=== PATIENT | female | born 1945 | race Caucasian/White ===

== ENCOUNTER → 2018-09-24 14:19 | Outpatient (CLI) | payer MEDICARE, BC, SELFPAY ==
[2018-09-27 19:20] LABS: PTT-LA Screen 40 seconds (< OR = 40); dDRVVT Screen 48 seconds (< OR = 45)
[2018-09-28 15:35] LABS: ANA Screen NEGATIVE (Negative); DNA Antibody Crithidia IFA POSITIVE (Negative); Rheumatoid Factor <14 IU/mL; Sjogren Antiboday SS-A <1.0 NEG AI (<1.0 NEGATIVE); Sjogren Antiboday SS-B <1.0 NEG AI (<1.0 NEGATIVE); Sm Antibody <1.0 NEG AI (<1.0 NEGATIVE); Sm/RNP Antibody <1.0 NEG AI (<1.0 NEGATIVE)
== END ==
PROVIDERS: PCP Internal Medicine; Visit Provider Internal Medicine
DX: I26.99 Other pulmonary embolism without acute cor pulmonale (principal)
CPT/HCPCS: 36415; 81240; 81241; 85597; 85613; 85730; 86038; 86430

== ENCOUNTER 2018-10-08 13:43 | Day surgery (SDC) | payer MEDICARE, BC, SELFPAY ==
[2018-10-08] VITALS (7 sets, daily range): BP systolic 121–146; BP diastolic 70–78; PULSE 68–73; RESP 12–20; TEMP 36–36.9; O2SAT 96–98; BMI 33.0
--- NOTE | 2018-10-08 | PATH_ITS ---
[facility] Accession Number: [id number] . 01 Material submitted: . PART A: ASCENDING COLON POLYP PART B: TRANSVERSE COLON POLYP X3 PART C: SIGMOID POLYP PART D: RECTAL POLYP X2 . 02 Diagnosis: A. Ascending Colon, Polyp, Biopsy: Tubular adenoma. . B. Transverse Colon, Polyps x3, Biopsies: Tubular adenoma in two of six fragments. Hyperplastic polyp in one fragment. . C. Sigmoid Colon, Polyp, Biopsy: Hyperplastic polyp. . D. Rectum, Polyps x2, Biopsies: Multiple fragments of tubulovillous adenoma. No evidence of malignancy or high-grade dysplasia. [facility]/10/10/2018 . 02 Electronically signed: . Merly Armendariz MD, Pathologist NPI- [id number] . 01 Gross description: . Part A: ASCENDING COLON POLYP: Received in formalin are 2 fragment(s) of steel, soft tissue measuring 0.4 x 0.3 x 0.2 cm to 0.3 x 0.2 x 0.2 cm submitted entirely in 1 cassette(s) Part B: TRANSVERSE COLON POLYP X3: Received in formalin are multiple fragment(s) of steel, soft tissue measuring 0.9 x 0.6 x 0.2 cm in aggregate submitted entirely in 1 cassette(s) Part C: SIGMOID POLYP: Received in formalin is 1 fragment(s) of steel, soft tissue measuring 0.5 x 0.5 x 0.4 cm submitted entirely in 1 cassette(s) Part D: RECTAL POLYP X2: Received in formalin are multiple fragment(s) of steel, soft tissue measuring 1.5 x 1.0 x 0.4 cm in aggregate submitted entirely in 1 cassette(s) /CKI /CKI . 02 Pathologist provided ICD-10: D12.2, D12.3, D12.8 . 02 CPT . 244266, 102277, 425885, 321013 Performed at: 01 [facility] [address] [address] [id number] MD Adam Morgan MD Phone: [phone] Performed at: [address] [facility] [id number] [place], [place] [id number] MD Merly Armendariz MD Phone: [phone]
[2018-10-08] MEDS: SODIUM CHLORIDE 0.9% 1,000 ML 200 ML IV (15:20)
--- NOTE | 2018-10-08 15:25 | SUR.PREOP ---
per dr. brown no blood sugar or inr needed
--- NOTE | 2018-10-08 15:28 | PM.HP.1 ---
History of Present Illness Chief complaint: [id number] Patient History Social History household members: friend(s) Family & Social History Social History: household members friend(s) Meds Home Medications Medication Instructions Recorded Confirmed Type atorvastatin [Lipitor] 20 mg PO HS #0 06/06/17 10/08/18 History benazepril 5 mg PO DAILY 10/08/18 10/08/18 History gabapentin 600 mg PO BEDTIME 10/08/18 10/08/18 History pregabalin [Lyrica] 50 mg PO TID 10/08/18 10/08/18 History trazodone 50 mg PO BEDTIME 10/08/18 10/08/18 History warfarin 5 mg PO DAILY 10/08/18 10/08/18 History Review of Systems Review of Systems All systems reviewed & are unremarkable except as noted in HPI and below Exam Vital Signs (past 8 hours): - 10/08/18 15:02 Temperature 98.5 F Pulse Rate 73 Respiratory Rate 16 Blood Pressure 121/76 Pulse Oximetry 96 Narrative Exam Narrative: Awake alert oriented x3, pupils equal round reactive to light, heart regular rate rhythm, lungs clear to auscultation, abdomen soft nontender nondistended, no lower extremity edema Assessment & Plan Assessment & Plan narrative: Colon cancer screening, colonoscopy
--- NOTE | 2018-10-08 15:31 | SUR.PREOP ---
dr. montague decided to do blood sugar , it was 70, endo nurses to report findings to
[2018-10-08] MEDS: MIDAZOLAM 5 MG/5 ML VIAL IV (15:59)
[2018-10-08] MEDS: fentaNYL 250 MCG/5 ML INJ IV (16:00)
--- NOTE | 2018-10-08 16:23 | P.OP.ENDO_ITS ---
Operative Date/Time/Diagnoses Date of procedure: 10/08/18 Procedure & Clinicians Study performed: Colonoscopy with biopsy, snare polypectomy, and hemoclip placement Moderate conscious sedation was administered by the endoscopy nurse and supervised by the endoscopist. The following parameters were monitored: Oxygen saturation, heart rate, blood pressure, and response to care. Sedation: 5 mg midazolam, 100 mcg fentanyl Indications: Colon cancer screening. Family history of colon cancer in 2 first- degree relatives Procedure Notes Procedure in detail: Prior to the procedure, history and physical was performed, and patient medications and allergies were reviewed. Preprocedure nursing history and assessment was reviewed. Patient identification and proposed procedure were verified by the physician and nurse in the procedure room. The physical status of the patient was reassessed after the procedure. After informed consent was obtained including risks, benefits, and alternatives, the scope was passed under direct vision. Throughout the procedure, the patient's blood pressure, pulse, and oxygen saturations were monitored continuously. The colonoscope was introduced through the anus and advanced to the cecum as identified by the appendiceal orifice and ileocecal valve. The patient tolerated the procedure well. Bowel prep was deemed adequate to detect polyps greater than 5 mm. Perianal examination was notable for prolapsed internal hemorrhoids. LESA was unremarkable aside from weak sphincter tone. Retroflexion in the rectum revealed large grade 3 internal hemorrhoids. Many medium mouth sigmoid colon diverticula noted. A 12 mm semi pedunculated polyp in the mid to distal rectum about 6 cm from the dentate line was removed with a hot snare. Two hemoclips applied to the polypectomy defect to prevent post polypectomy bleeding. Six sessile polyps ranging in size from 3 to 4 mm were removed from the rectum, sigmoid colon, transverse colon, and ascending colon with a Jumbo biopsy forceps and retrieved Small telangiectasias scattered throughout the entire colon Impression: 12 mm rectal polyp removed. Hemoclips applied to mucosal defect to prevent bleeding Six 3-4 mm polyps removed from the rectum, sigmoid colon, transverse colon, and ascending colon Sigmoid colon diverticulosis Prolapsed internal hemorrhoids Colonic telangiectasias Sedation minutes: 36 Complications: other (EBL minimal. No complications) Plan for aftercare: Follow-up pathology results Repeat colonoscopy at a date to be determined based on pathology results Resume Coumadin tomorrow as per prescribing providers recommendations with regards to timing and dosage Resume other home medications High fiber diet Discharge home with escort
--- NOTE | 2018-10-08 16:40 | SUR.PHASEI ---
HOB elevated, drinking water, denies pain
--- NOTE | 2018-10-08 16:45 | SUR.PHASEI ---
164 Report given - to OPD by Raissa Blanco. Glasses returned to patient, taking sips of water. Oriented/drowsy.
== END 2018-10-08 16:57 | disposition home or self-care (01) ==
PROVIDERS: Internal Medicine; PCP Internal Medicine; Visit Provider Internal Medicine Gastroenterology
PROC: 0DJD8ZZ Inspection of Lower Intestinal Tract, Via Natural or Artificial Opening Endoscopic (ICD-10-PCS; CPT 45378; principal; 2018-10-08 15:30)
DX: Z12.11 Encounter for screening for malignant neoplasm of colon (principal); Z80.0 Family history of malignant neoplasm of digestive organs; K57.30 Diverticulosis of large intestine without perforation or abscess without bleeding; D64.2 Secondary sideroblastic anemia due to drugs and toxins; I78.1 Nevus, non-neoplastic; E11.9 Type 2 diabetes mellitus without complications; Z86.711 Personal history of pulmonary embolism; I10 Essential (primary) hypertension; E78.00 Pure hypercholesterolemia, unspecified; D12.2 Benign neoplasm of ascending colon; D12.3 Benign neoplasm of transverse colon; D12.8 Benign neoplasm of rectum; D12.5 Benign neoplasm of sigmoid colon
CPT/HCPCS: 45385; 45380; 45382; 88305; J2250; J3010

== ENCOUNTER → 2018-10-27 12:50 | Outpatient (CLI) | payer MEDICARE, BC, SELFPAY ==
--- NOTE | 2018-10-27 | DI.MG.S_ITS ---
BILATERAL DIGITAL SCREENING MAMMOGRAM 3D/2D WITH CAD POST LUMPECTOMY: 10/27/2018 CLINICAL: Routine screening. Personal history of left breast cancer. Family history of breast cancer. Comparison is made to exams dated: 10/24/2017 mammogram, 10/19/2016 mammogram, 10/18/2015 mammogram, 11/14/2017 mammogram, 10/07/2014 mammogram, and 10/18/2014 mammogram - [facility]. The tissue of both breasts is extremely dense, which lowers the sensitivity of mammography. Current study was also evaluated with a Computer Aided Detection (CAD) system. There are grouped punctate calcifications in the right breast upper outer aspect posterior depth with associated architectural distortion. Findings are best noted on tomographic CC slice 33 and MLO slice 44. There is postsurgical scarring of the left breast with associated coarse and may-like calcifications, most consistent with dystrophic and secretory calcifications, that are stable to prior exams. IMPRESSION: INCOMPLETE: NEEDS ADDITIONAL IMAGING EVALUATION The grouped punctate calcifications with associated architectural distortion in the right breast are indeterminate. Magnification views as well as additional views with possible ultrasound are recommended. This exam was interpreted at Station ID: [id number]. NOTE: For mammograms, a report in lay terms will be sent to the patient. Approximately 15% of breast malignancies will not be visualized mammographically. In the management of a palpable breast mass, a negative mammogram must not discourage biopsy of a clinically suspicious lesion. Electronically Signed By: Shady Marroquin M.D. ecl/:10/27/2018 19:49:23 copy to: OMAR MCFARLAND letter sent: Additional Imaging Needed ACR BI-RADS Category 0: Incomplete 3340F
== END ==
PROVIDERS: PCP Internal Medicine; Visit Provider Internal Medicine
DX: Z12.31 Encounter for screening mammogram for malignant neoplasm of breast (principal); Z85.3 Personal history of malignant neoplasm of breast; Z80.3 Family history of malignant neoplasm of breast
CPT/HCPCS: 77063; 77067

== ENCOUNTER → 2018-11-05 08:38 | Outpatient (CLI) | payer MEDICARE, BC, SELFPAY ==
--- NOTE | 2018-11-05 | DI.MG.S_ITS ---
UNILATERAL RIGHT DIGITAL DIAGNOSTIC MAMMOGRAM 3D/2D WITH ADDITIONAL VIEWS POST LUMPECTOMY: 11/05/2018 CLINICAL: Additional evaluation requested from prior study. Comparison is made to exams dated: 10/27/2018 mammogram, 11/14/2017 mammogram, and 10/24/2017 mammogram - [facility]. The tissue of right breast is extremely dense, which lowers the sensitivity of mammography. Previously identified 0.5 cm extent of grouped punctate calcifications in the right breast upper outer aspect posterior depth with associated architectural distortion seen on comparison screening mammograms of 10/27/2018 persists with additional views. IMPRESSION: INCOMPLETE: NEEDS ADDITIONAL IMAGING EVALUATION Previously identified 0.5 cm extent of grouped punctate calcifications in the right breast upper outer aspect posterior depth with associated architectural distortion seen on comparison screening mammograms of 10/27/2018 persists with additional views. A targeted ultrasound is recommended for further evaluation, and will be performed immediately following this exam. This exam was interpreted at Station ID: [id number]. NOTE: For mammograms, a report in lay terms will be sent to the patient. Approximately 15% of breast malignancies will not be visualized mammographically. In the management of a palpable breast mass, a negative mammogram must not discourage biopsy of a clinically suspicious lesion. Electronically Signed By: Shady Marroquin M.D. ecl/:11/05/2018 09:33:08 copy to: OMAR MCFARLAND letter sent: Additional Imaging Needed ACR BI-RADS Category 0: Incomplete 3340F
--- NOTE | 2018-11-05 | DI.US.S_ITS ---
LIMITED ULTRASOUND OF RIGHT BREAST: 11/05/2018 CLINICAL: Patient returns today to evaluate an area of architectural distortion in the right breast. Comparison is made to exams dated: 11/05/2018 mammogram, 10/27/2018 mammogram, 11/14/2017 mammogram, 10/24/2017 mammogram, 10/19/2016 mammogram, and 10/18/2015 mammogram - [facility]. Real-time and Doppler ultrasound of the right breast 11-12 o'clock, and retroareolar regions were performed. Daniels scale images of the real-time examination were reviewed. No underlying breast mass or abnormality is identified. There is no ultrasound correlate for the previously noted 0.5 cm extent of grouped punctate calcifications in the right breast upper outer aspect posterior depth with associated architectural distortion seen on comparison screening mammograms of 10/27/2018 which also persisted with additional views performed today 11/05/2018. IMPRESSION: SUSPICIOUS OF MALIGNANCY No ultrasound correlate for the previously noted 0.5 cm extent of grouped punctate calcifications in the right breast upper outer aspect posterior depth with associated architectural distortion seen on comparison screening and diagnostic mammograms. A stereotactic biopsy is recommended. These results and recommendations were discussed with the patient at the time of the exam by Dr. Chandler Sierra of [facility] in person. This exam was interpreted at Station ID: [id number]. Electronically Signed By: Shady Marroquin M.D. ecl/:11/05/2018 09:57:40 copy to: OMAR MCFARLAND letter sent: Biopsy Required Ultrasound BI-RADS: 4c Suspicious abnormality - moderate concern but not classic for malignancy
== END ==
PROVIDERS: PCP Internal Medicine; Visit Provider Internal Medicine
DX: R92.8 Other abnormal and inconclusive findings on diagnostic imaging of breast (principal)
CPT/HCPCS: 76642; 77065; G0279

== ENCOUNTER → 2018-12-30 14:47 | Outpatient (CLI) | payer MEDICARE, BC, SELFPAY ==
[2018-12-30 15:59] LABS: Alanine Aminotransferase 27 IU/L (9-52); Albumin 4.1 g/dL (3.5-5.0); Albumin Globulin Ratio 1.6 (1.0-2.8); Alkaline Phosphatase 85 U/L (38-126); Aspartate Aminotransferase 23 IU/L (14-36); BUN Creatinine Ratio 26.3 (6-22); Bilirubin Total 0.7 mg/dL (0.2-1.3); Blood Urea Nitrogen 21 mg/dL (7-17); Calcium 9.5 mg/dL (8.4-10.2); Carbon Dioxide 33 mmol/L (22-32); Chloride 102 mmol/L (98-107); Estimated Glomerular Filt Rate > 60.0 mL/min (>60); Globulin 2.5 g/dL (1.7-4.1); Glucose 116 mg/dL (80-110); HEMOLYSIS 18 (0-50); Potassium 4.7 mmol/L (3.4-5.1); Sodium 141 mmol/L (137-145); Total Protein 6.6 g/dL (6.3-8.2)
[2018-12-30 16:04] LABS: Add Manual Diff / Slide Review NO; Basophils Absolute Auto 0 /uL (0-100); Basophils Percent Auto 0.6 % (0-2); Eosinophils Absolute Auto 200 /uL (0-450); Eosinophils Percent Auto 4.1 % (2-4); Hematocrit 46.6 % (36-46); Hemoglobin 15.9 g/dL (12.0-16.0); Lymphocytes Absolute Auto 1000 /uL (1100-4500); Lymphocytes Percent Auto 18.6 % (25-40); Mean Corpuscular HGB Conc 34.1 % (30-36); Mean Corpuscular Hemoglobin 29.1 PG (26-34); Mean Corpuscular Volume 85.3 fL (80-100); Monocytes Absolute Auto 500 /uL (0-900); Monocytes Percent Auto 8.4 % (3-14); Neutrophils Absolute Auto 3700 /uL (1500-7000); Neutrophils Percent Auto 68.3 % (50-75); Platelet Count 163 X10^3/uL (150-400); Red Blood Cell Count 5.46 X10^6/uL (4.0-5.2); Red Cell Distribution Width 13.5 % (11.6-14.8); White Blood Cell Count 5.5 X10^3/uL (4.5-11.0)
== END ==
PROVIDERS: PCP Internal Medicine; Visit Provider Internal Medicine Hematology & Oncology
DX: D05.11 Intraductal carcinoma in situ of right breast (principal)
CPT/HCPCS: 36415; 80053; 85025

== ENCOUNTER → 2019-01-08 08:58 | Outpatient (CLI) | payer MEDICARE, BC, SELFPAY ==
--- NOTE | 2019-01-08 08:59 | DI.MRI.S_ITS ---
BREAST MRI OF BOTH BREASTS: 01/08/2019 CLINICAL: Breast cancer. Comparison is made to exams dated: 11/05/2018 mammogram, 10/27/2018 mammogram, 11/14/2017 mammogram, 10/24/2017 mammogram, and 10/19/2016 mammogram - [facility]. TECHNIQUE: The patient was placed prone in a dedicated breast imaging coil. Precontrast axial STIR and 3D FLASH without fat saturation sequences were obtained. Both before and after bolus injection of contrast, sequential 1-minute axial 3D FLASH with fat saturation sequences for 3 time points, with subtraction images and maximum intensity projections (MIP's) generated. Delayed sagittal FLASH images with fat saturation were also obtained. Computer-aided detection, including computer algorithm analysis of MRI image data for lesion detection and characterization, pharmacokinetic analysis, with further physician review for interpretation, was performed. FINDINGS: Image quality: Excellent. Right breast: There is mild background parenchymal enhancement. 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 No suspicious mass, or non-mass enhancement seen in the right breast. There is a prominent right axillary lymph node with preservation of reniform shape and central fatty hilum measuring approximately 1.9 cm x 1.2 cm in size. However, there is mild irregular thickening of the cortex measuring up to 3.5mm-4 mm in thickness. A small, slightly thickened axillary lymph node measuring 9mm in size is noted adjacent to the previously described axillary node. There is a prominent 6mm deep posterior right lymph node seen on image 64, series 13. No internal mammary chain adenopathy. Left breast: There is mild background parenchymal enhancement. There is no suspicious mass, architectural distortion, or non-mass enhancement. There is no left axillary or internal mammary chain adenopathy. Miscellaneous: There are no abnormalities seen in the thorax, bones of the thorax, mediastinum, liver, or lungs. IMPRESSION: INCOMPLETE: NEEDS ADDITIONAL IMAGING EVALUATION 1. 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 No associated mass or non-mass enhancement. No separate foci of abnormal enhancement or other suspicious mass lesion. 2. Prominent right axillary lymph node with slight irregular thickening of the cortex measuring up to 4 mm in thickness. Overall, this lymph node demonstrates preservation of reniform morphology and central fatty hilum. Additionally, there is a smaller, adjacent prominent lymph node with mildly thickened cortex, and another 6 mm deep posterior right intramammary lymph node that appears more distinct than other lymph nodes. These are favored to represent reactive lymph nodes from recent biopsy. However, recommend second look ultrasound of the right axilla to reevaluate the largest lymph node described above. If no abnormalities are noted on second look ultrasound, findings may be followed by short interval MRI in 6 months. 3. No MRI evidence for malignancy in the left breast. BIRADS 0, need additional imaging evaluation. COMMENT: The imaging literature indicates that a negative contrast breast MRI examination has a high sensitivity and a moderate specificity for detecting and excluding invasive carcinomas to a detection threshold of 3-5 mm; nonetheless, appropriate clinical and mammographic follow-up are recommended. MRI is not sensitive for detecting DCIS (ductal carcinoma in situ) and may not detect large invasive neoplasms that show only minimal enhancement such as mucinous carcinoma. If there are suspicious calcifications or clinically worrisome palpable masses, then biopsy should still be considered. Invasive neoplasms can be hidden by co-existent and benign enhancement caused by mastitis, hormone therapy effects, radiation therapy, , and recent biopsy or surgery. False positive examinations can occur in a number of circumstances, including breasts that have recently been subject to invasive procedures and those that contain atypical ductal hyperplasia, hormonally stimulated glandular tissue, fat necrosis, or radial scars. This exam was interpreted at Station ID: [id number]. Electronically Signed By: Conrad Richardson M.D. aty/:01/09/2019 06:07:18 letter sent: Additional Imaging Needed ACR BI-RADS Category 0: Incomplete 3340F
== END ==
PROVIDERS: PCP Internal Medicine; Visit Provider Internal Medicine Hematology & Oncology
DX: R92.8 Other abnormal and inconclusive findings on diagnostic imaging of breast (principal); D05.11 Intraductal carcinoma in situ of right breast
CPT/HCPCS: 77049; A9579

== ENCOUNTER → 2019-01-23 12:43 | Outpatient (CLI) | payer MEDICARE, BC, SELFPAY ==
--- NOTE | 2019-01-23 12:46 | DI.US.S_ITS ---
ULTRASOUND OF RIGHT BREAST: 01/23/2019 CLINICAL: Lymph node on MRI. Comparison is made to exam dated: 01/08/2019 breast [facility]. Color flow and real-time ultrasound of the right breast were performed. Daniels scale images of the real-time examination were reviewed. There is a 2.2 cm x 1 cm lymph node in the right axillary tail. This lymph node displays a prominent fatty hilum and has a thin uniform cortex measuring up to 2 mm. This correlates with breast MRI findings. Color flow imaging demonstrates that there is no increase in vascularity. A second benign appearing lymph node measures 1.1 cm in length and has a 1 mm thick cortex. No other abnormal lymph nodes seen. IMPRESSION: BENIGN The largest 2.2 cm lymph node in the right axillary tail is appears benign. Follow up per MRI report. This exam was interpreted at Station ID: [id number]. Electronically Signed By: Vera chapman/:01/26/2019 08:02:06 Entry: - 01/26/2019 08:02:06 Ultrasound BI-RADS: 2 Benign
== END ==
PROVIDERS: PCP Internal Medicine; Visit Provider Internal Medicine Hematology & Oncology
DX: D05.11 Intraductal carcinoma in situ of right breast (principal); R59.0 Localized enlarged lymph nodes
CPT/HCPCS: 76882

== ENCOUNTER → 2019-02-05 06:59 | Outpatient (CLI) | payer MEDICARE, BC, SELFPAY ==
--- NOTE | 2019-02-05 | DI.MG.S_ITS ---
SPECIMEN RIGHT BREAST: 02/05/2019 CLINICAL: Right breast specimen. Correlation is made to exams dated: 02/05/2019 [facility] and 11/12/2018 [facility]. A surgical specimen was imaged for the previous biopsy site located in the right breast at 12 o'clock posterior depth. The ribbon clip is not identified in the specimen. There is a course calcification within the specimen which appears to correspond to the posterior medial calcification on the pre-procedural wire localization mammogram. IMPRESSION: SPECIMEN The imaged specimen does not include the ribbon biospy clip. The distal portion of the localization wire is included. Disscussed with Dr. Blanco at time of dictation. This exam was interpreted at Station ID: [id number]. Jeovany Amaya M.D. slc/:02/05/2019 12:27:44
--- NOTE | 2019-02-05 | DI.MG.S_ITS ---
DIGITAL MAMMOGRAPHY GUIDED WIRE LOCALIZATION RIGHT BREAST WITH POST DIGITAL MAMMOGRAPHIC IMAGING- POST-NEEDLE BIOPSY: 02/05/2019 CLINICAL: Intraductal Carcinoma in situ Right Breast. Correlation is made to exams dated: 11/12/2018 stereotactic biopsy - [facility] and 11/05/2018 mammogram - [facility]. A wire localization using digital mammography guidance was performed for the marker clip located in the right breast at 12 o'clock posterior depth. The skin was prepped in the usual manner. Local anesthetic was administered to the access site. The localization was approached from the craniocaudal aspect. A J-hook wire was inserted into the targeted area under digital mammography guidance. Post placement digital mammographic imaging demonstrates the wire ridge 1cm posterior from the geometric center of the targeted area ribbon clip. IMPRESSION: WIRE LOCALIZATION Wire localization for the marker clip in the right breast at 12 o'clock posterior depth was successful. Patient will undergo surgical excision. This exam was interpreted at Station ID: [id number]. Jeovany Amaya M.D. slc/:02/05/2019 12:16:20
== END ==
PROVIDERS: PCP Internal Medicine; Visit Provider Specialist
DX: D05.11 Intraductal carcinoma in situ of right breast (principal)
CPT/HCPCS: 19281; 76098

== ENCOUNTER 2019-02-05 07:23 | Day surgery (SDC) | payer MEDICARE, BC, SELFPAY ==
[2019-01-23 13:12] VITALS: BMI 33.0
[2019-02-05] VITALS (7 sets, daily range): BP systolic 109–147; BP diastolic 66–87; PULSE 58–84; RESP 10–18; TEMP 36.2–36.8; O2SAT 93–98; BMI 33.0
--- NOTE | 2019-02-05 | PATH_ITS ---
[facility] Accession Number: [id number] . 01 Material submitted: . PART A: breast - RIGHT BREAST MASS PART B: breast - RIGHT BREAST WALL TISSUE . 01 Clinical history: . A. STITCH: SHORT INFERIOR, LONG ANTERIOR B. STITCH ZAMORA CAVITY SIDE . 02 Diagnosis: A. Right Breast, Mass, Excision: 1. Scattered lobular carcinoma in situ. 2. Microcalcifications present in association with benign breast tissue. 3. No definite biopsy site change is identified. 4. No evidence of atypical hyperplasia, ductal carcinoma in situ or invasive carcinoma. . B. Right Breast Wall Tissue, Excision: 1. Focal lobular carcinoma in situ. 2. Microcalcifications present in association with benign breast tissue. 3. No definite biopsy site changes identified. 4. No evidence of atypical hyperplasia, ductal carcinoma in situ or invasive carcinoma. MRV/02/13/2019 . 02 Comment: As part of routine director supplier quality, Dr. Rodriguez also reviewed this case and agrees with the above interpretation. Dr. Armendariz discussed the results with Dr. Caballero on 02/13/19. The biopsy slides have been requested (requested 02/10) for review, and results of review will be reported in an addendum. . 02 Electronically signed: . Merly Armendariz MD, Pathologist NPI- [id number] . 01 Gross description: . A. Received: Fresh, labeled right breast mass. Specimen: Right partial mastectomy. Weight: 31 grams. Measurement: 6.4 cm medial to lateral, 4.4 cm anterior to posterior, and 3.3 cm superior to inferior. Skin ellipse: Absent. Wire: Present, penetrating the lateral side and entering approximately 1.5 cm. Margins: Oriented with short stitch inferior, long stitch anterior, and inked as follows: posterior-black; anterior-purple; superior-blue; inferior-green; medial-yellow; lateral-orange. Sliced: Medial to lateral into 12 slices. Lesions: Lesion 1: Firm steel tissue adjacent to the posterior margin spanning slices 3-5 and measuring 1.6 x 1.0 x 0.5 cm. Lesion 2: 0.4 x 0.3 x 0.2 cm firm steel-brown tissue in slice 10 at the posterior inferior margin and located 2.2 cm from lesion 1. Other: The remaining cut surfaces consist of yellow lobulated adipose tissue comprising 95% of the breast parenchyma. The remaining 5% consists of andrade-white rubbery fibroglandular tissue. No additional discrete masses or lesions are grossly identified. Fixation time: The specimen is placed in formalin at an estimated time of 12:00 on 02/05/2019 for a total fixation time of approximately 67 hours. Sections: A1-A2: Slice 1, perpendicularly sectioned. A3: Slice 2. A4-A5: Slice 3. A6-A7: Slice 4. A8-A9: Slice 5. A10-A11: Slice 6. A12-A13: Slice 7. A14-A15: Slice 8. A16-A17: Slice 9. A18: Slice 10, lesion 2. A19: Slice 11, wire location. A20: Slice 12, perpendicularly sectioned. B. Received in formalin, labeled with the patient's name and right breast wall tissue, is a 5.3 x 4.1 x 1.5 cm steel-yellow to steel-brown soft tissue with a stitch on one side designated as cavity side. The cavity side is inked orange and the opposite side is inked blue. The specimen is serially sectioned to reveal multiple firm steel-white areas comprising approximately 30% of the cut surface. The remaining cut surfaces consist of yellow, lobulated adipose tissue. No tumor is grossly identified. The specimen is entirely submitted in seven cassettes. ([place]:[id number]) /MRV . 02 Microscopic: . Immunohistochemical stains were performed to characterize cells of interest. The control stain showed appropriate reactivity. . RESULTS: Block A13: P63: Present around the ducts of interest. Myosin: Present around the ducts of interest. E-cadherin: Attenuated in the cells of interest. . Block B7: E-cadherin: Attenuated in the cells of interest. . INTERPRETATION: The ducts of interest are highlighted by scattered p63 and myosin-positive cells consistent with an in situ process. The absence of strong solid e-cadherin positivity is compatible with a lobular carcinoma in situ in both blocks A13 and B7. . * This test was developed and its performance characteristics determined by [facility]. It has not been cleared or approved by the U.S. Food and Drug Administration. The FDA has determined that such clearance or approval is not necessary. This test is used for clinical purposes. It should not be regarded as investigational or for research. . 02 Pathologist provided ICD-10: D05.01 . 02 CPT . 028936, 104762, U06010, X93953 Performed at: [facility] [address] [id number] MD Adam Morgan MD Phone: [phone] Performed at: [facility] [address] [place] [id number] MD Merly Armendariz MD Phone: [phone]
[2019-02-05] MEDS: LACTATED RINGERS 1,000 ML 100 ML IV (09:06)
--- NOTE | 2019-02-05 10:45 | PM.PREOP ---
Pre-operative Note Interval Note History & Physical reviewed/Exam performed by Physician: Yes Changes to H&P: Yes H&P completed within 30 days and has changed as indicated here:: The patient had successful needle localization this morning. History and physical date from 01/07
[2019-02-05] MEDS: CEFAZOLIN 2 GM/100 ML FROZ.PIGGY IV (10:55)
--- NOTE | 2019-02-05 11:28 | SUR.OPER ---
Supine on padded OR bed, head on pillow, arms secured on padded arm boards at <90 degrees abduction, legs uncrossed, safety belt at thigh, tape over blanket over lower legs.
[2019-02-05] MEDS: BUPIVACAINE 0.5% (PF) VIAL 30 ML INJ (11:39)
--- NOTE | 2019-02-05 12:23 | P.OP_ITS ---
Operative Date/Time/Diagnoses Date of procedure: 02/05/19 Time of procedure: 12:17 Pre-op diagnosis: DCIS right breast Post-op diagnosis: same (It is believed the needle moved based on discussion with the radiologist) Procedure & Clinicians Procedure: Needle localization biopsy Same procedure as scheduled: Yes Indications: DCIS Surgeon: Néstor Caballero Click Yes if Unassisted: Yes Anesthesia Type: General Operative Notes Findings: Clip does not appear to be in the specimen. In discussion with the radiologist I believe the needle moved after placement. It appears that the thickened part of the needle was exposed when the patient came to the operating room and the radiologist does not believe that was the case when he completed placement. Thus it appears that it may have backed out. Closure Type: primary Specimen(s): other (Breast tissue and posterior wall) Estimated Blood Loss (mL): 20 Blood products transfused: none Procedure in detail: The patient is placed supine on the operating room table and underwent general and LMA anesthesia. The cup was carefully removed. Thickened part of the needle was noted to be above skin level for a length of about a cm. The breast and needle were prepped and draped in the usual fashion. A portion the needle was cut off to decrease the length just prior to prepping. Incision was made through the insertion site in Kayley's lines. Using the needle as a guide the tissue around it was excised in a generous fashion. The specimens removed and hemostasis achieved. Palpation revealed a slightly hardened area that I removed and the posterior wall. This was sent as a specimen separately. The original specimen mammography failed to reveal the clip in was reported there was calcification within it. We repeated the image in a different angle and it appears that there is a calcification but no clip. It was assumed that the needle had been dislodged from the time of placement to the patient going to the operating room. Because of that it seemed point list to randomly removed tissue from the breast. The cavity was closed as was the subcu with 3 0 Vicryl. Four 0 Vicryl subcuticular stitches and Steri-Strips were used to close the skin. Patient was extubated after wakening and taken to the recovery area in good condition. Condition: stable Disposition: PACU Plan for aftercare: Will repeat the patient's mammogram whenever she has recovered from her operation and proximally 1-2 months and see if the clip remains in the breast. It is possible that it was dislodged and suctioned tim goff I do not think that likely. The pathology report may also be helpful if there is an abnormality within the tissue.
[2019-02-05] MEDS: fentaNYL 100 MCG/2 ML INJ 50 MCG IV (12:36)
[2019-02-05] MEDS: OXYCODONE/ACETAMINOPHEN 5/325 TABLET 1 TAB PO (12:46)
--- NOTE | 2019-02-05 14:02 | SUR.PHASEII ---
lATE ENTRY: Assumed ccare from Michael Santos. dressing to r breast c/d/i. ice on and off to area. pt stated pain tolerable. dressed when ready and left when ready and in stable condition.
== END 2019-02-05 14:05 | disposition home or self-care (01) ==
PROVIDERS: PCP Internal Medicine; Visit Provider Specialist
PROC: (CPT 19301; principal; 2019-02-05 10:15)
DX: D05.01 Lobular carcinoma in situ of right breast (principal); E11.9 Type 2 diabetes mellitus without complications; E78.00 Pure hypercholesterolemia, unspecified; I10 Essential (primary) hypertension; Z86.711 Personal history of pulmonary embolism
CPT/HCPCS: 19301; 88307; 88341; 88342; J0690; J1100; J1885; J2250; J2405; J2704; J3010

== ENCOUNTER 2019-03-02 07:03 | Day surgery (SDC) | payer MEDICARE, BC, SELFPAY ==
[2019-02-24 13:46] VITALS: BMI 33.0
[2019-03-02] VITALS (8 sets, daily range): BP systolic 100–114; BP diastolic 51–67; PULSE 61–88; RESP 12–17; TEMP 35.6–36; O2SAT 92–98; BMI 33.0
--- NOTE | 2019-03-02 | PATH_ITS ---
[facility] Accession Number: [id number] . 01 Material submitted: . PART A: breast - RIGHT BREAST MASS PART B: breast - RIGHT BREAST MASS PART C: breast - RIGHT BREAST MASS MARGIN . 01 Clinical history: . A. LONG STITCH ANTERIOR, SHORT STITCH MEDIAL B. LONG STITCH POSTERIOR, SHORT STITCH LATERAL (PART OF MAIN SPECIMEN) C. LONG STITCH POSTERIOR . 01 Diagnosis: A. Right Breast Mass, Excision: Scattered atypical lobular hyperplasia and focal flat epithelial atypia. Excision/prior procedure site with associated foreign body giant cell reaction, fibrosis, and inflammation. Background breast with columnar cell change, stromal fibrosis, and microcalcifications. Negative for ductal carcinoma in situ and malignancy, including examination of all margins. . B. Right Breast Mass, Excision: Multifocal atypical lobular hyperplasia/lobular carcinoma in situ (ALH/LCIS). Excision/prior procedure site with associated giant cell reaction, fibrosis, and inflammation. Background breast with columnar cell change/hyperplasia, stromal fibrosis, and focal usual ductal hyperplasia. Microcalcifications in association with ALH/LCIS and benign breast parenchyma. Negative for ductal carcinoma in situ and malignancy, including examination of all margins. . C. Right Breast Mass Margin, Excision: Scattered atypical lobular hyperplasia/lobular carcinoma in situ (ALH/LCIS). Excision/prior procedure site with associated foreign body giant cell reaction, fibrosis, and inflammation. Background breast with focal usual ductal hyperplasia, fibroadenomatoid change, focal apocrine metaplasia, and stromal fibrosis. Microcalcifications in association with ALH/LCIS and benign breast parenchyma. Negative for ductal carcinoma in situ and malignancy, including examination of all margins. MNT/03/05/2019 . 01 Electronically signed: . Shelbie Heredia MD, Pathologist NPI- [id number] . 01 Gross description: . A. Received: In formalin, labeled right breast mass. Specimen: Right partial mastectomy. Weight: 21 grams. Measurement: 5.6 cm anterior to posterior, 4 cm superior to inferior, and 3.1 cm medial to lateral. Skin ellipse: Absent. Wire: Present, penetrating at the anterior side and terminating in the posterior side. Margins: Oriented with long stitch anterior, short stitch medial, and inked as follows: posterior=black; anterior=purple; superior=blue; inferior=green; medial=yellow; lateral=orange. Sliced: Posterior to anterior into 15 slices. Lesions: Lesion #1 Description: Firm, white, lobulated mass adjacent to wire termination. Size: 2.4 x 1.4 x 1.0 cm. Slices involved: Slices 2-4. Biopsy site: Present, slices 3 and 4 with associated hemorrhage. Distance to margins: Abutting the inferior, posterior, lateral margin, 0.2 cm from the medial margin, 2.2 cm from the superior margin, and 4.2 cm from the anterior margin. Other: The remaining cut surfaces consist of yellow, lobulated adipose tissue comprising 70% of the breast parenchyma. The remaining 30% consists of andrade-white, rubbery, fibroglandular tissue. No additional discrete masses or lesions are grossly identified. Fixation time: The specimen was placed in formalin at approximately 12 o'clock on 03/02/2019 for a total fixation time of approximately 28 hours. Sections: A1-A2: Slice 1, posterior end of specimen, perpendicular. A3: Slice 2. A4-A5: Slice 3 with lesion, bisected. A6-A7: Slice 4 with lesion, bisected. A8-A9: Slice 5, bisected. A10-A11: Slice 6, bisected. A12: Slice 7. A13: Slice 8. A14: Slice 9. A15: Slice 10. A16-A17: Slice 11, bisected. A18-A19: Slice 12, bisected. A20-A21: Slice 13, bisected. A22-A23: Slice 14, bisected. A24-A25: Slice 15, anterior end of specimen, perpendicular. B. Received: In formalin, labeled right breast mass. Specimen: Right partial mastectomy: Weight: 4 grams. Measurement: 4.3 cm medial to lateral, 3 cm superior to inferior, and 1.7 cm anterior to posterior. Skin ellipse: Absent. Wire: Absent. Margins: Oriented with long stitch posterior, short stitch lateral and inked as follows: posterior=black; anterior=purple; superior=blue; inferior=green; medial=-yellow; lateral=orange. Sliced: Lateral to medial into 13 slices. Lesions: No discrete lesions grossly identified, hemorrhagic biopsy site changes spanning slices 3-6. Other: The cut surfaces consist of yellow, lobulated adipose tissue comprising 50% of the breast parenchyma. The remaining 50% consists of andrade-white, rubbery, fibroglandular tissue. No additional masses or lesions are grossly identified. Fixation time: The specimen was placed in formalin at approximately 12 o'clock on 03/02/2019 for a total fixation time of approximately 28 hours. Sections: B1: Slice 1, lateral end, perpendicular. B2: Slice 2. B3: Slice 3. B4: Slice 4. B5: Slice 5. B6: Slice 6. B7: Slice 7. B8: Slice 8. B9: Slice 9. B10: Slice 10. B11: Slice 11. B12: Slice 12. B13: Slice 13, medial end, perpendicular. C. Received in formalin, labeled with the patient's name and right breast mass margin, is a 25 gram steel-brown fibrofatty tissue oriented with a stitch designating the posterior margin. The specimen measures 2.6 cm anterior to posterior by 10.7 x 6.9 cm. The specimen is partially disrupted creating a questionably true margin on the posterior side. This area is inked yellow. The remaining of the posterior margin is inked black and the anterior margin is inked orange. The specimen is serially sectioned and no lesions are identified. The specimen is entirely submitted in 27 cassettes. ([place]:[id number]) /MRV . 01 Pathologist provided ICD-10: N60.89 . 01 CPT . 985457, 804218, 841325 Performed at: [address] [address], [place], [place] [id number] MD Adam Morgan MD Phone: [phone]
[2019-03-02] MEDS: LACTATED RINGERS 1,000 ML 100 ML IV (07:20)
[2019-03-02] MEDS: LACTATED RINGERS 1,000 ML 42 ML IV ×2 (09:34→11:41)
--- NOTE | 2019-03-02 09:44 | PM.PREOP ---
Pre-operative Note Interval Note History & Physical reviewed/Exam performed by Physician: Yes Changes to H&P: No H&P completed within 30 days and has changed as indicated here:: See note 02/18
[2019-03-02] MEDS: CEFAZOLIN 2 GM/100 ML FROZ.PIGGY IV (10:23)
--- NOTE | 2019-03-02 10:47 | SUR.OPER ---
Supine on padded OR bed, head on pillow, arms secured on padded arm boards at <90 degrees abduction, legs uncrossed, safety belt at thigh, tape over blanket over lower legs.
[2019-03-02] MEDS: BUPIVACAINE 0.5% (PF) VIAL 30 ML INJ (10:57)
[2019-03-02] MEDS: fentaNYL 100 MCG/2 ML INJ 50 MCG IV ×2 (11:59→12:07)
--- NOTE | 2019-03-02 12:08 | PM.OP.1 ---
Operative Date/Time/Diagnoses Date of procedure: 03/02/19 Time of procedure: 12:08 Pre-op diagnosis: Ductal carcinoma in situ. Re-excision because of a missed lesion. Post-op diagnosis: same (Clip in the specimen) Procedure & Clinicians Procedure: Needle localization and lumpectomy Same procedure as scheduled: Yes Indications: DCIS Surgeon: Néstor Caballero Click Yes if Unassisted: Yes Anesthesia Type: General Operative Notes Findings: Clip was in specimen. I took additional tissue to ensure I had removed the entire wall. Closure Type: primary Specimen(s): other (Three containers.) Prosthetic devices, grafts, tissues, transplants, or devices: None Estimated Blood Loss (mL): 25 Blood products transfused: none Procedure in detail: Patient was placed supine on the operating room table and underwent general LMA anesthesia. The protecting cup was removed and the needles were cut shorter to allow them to be easily brought into the field a manipulated. She was prepped and draped in the usual fashion. Incision was made through the old scar and extended slightly laterally. Dissection was begun inferiorly. Dissected to the needles and brought them into the field. Then using the needles as a guide remove the tissue around them. As a came across the posterior wall I was visualizing needle tip and therefore I took additional posterior wall. The specimen was marked prior to removal from the patient. The specimen was submitted for and appeared to contain the clip on the specimen mammography. I the small piece of tissue that I had taken beyond the needle tips and submitted it separately and marked it separately. I decided to take additional wall as well that since this is DCIS to make sure I had gotten the whole specimen. Essentially the entire wall was removed from her with the area around the specimen. It was submitted separately. Hemostasis was achieved. Local anesthetic was infiltrated. Clips were applied to isaura the cavity. space was closed with interrupted 3 0 Vicryl. The subcu was closed with interrupted 3 0 Vicryl. The skin was closed running 4 0 Vicryl subcuticular stitch and Steri-Strips. Dressing was applied the patient was taken recovery area extubated in good condition Complications: none Condition: stable Disposition: PACU
[2019-03-02] MEDS: HYDROCODONE/ACET 5/325 TABLET 1 TAB PO (12:20)
--- NOTE | 2019-03-02 13:00 | SUR.PHASEII ---
Family at bedside. Discharge instructions reviewed. Call light within reach.
== END 2019-03-02 13:31 | disposition home or self-care (01) ==
LOC: OR 07:06
PROVIDERS: PCP Internal Medicine; Visit Provider Specialist
PROC: (CPT 19301; principal; 2019-03-02 10:30)
DX: D05.11 Intraductal carcinoma in situ of right breast (principal); E11.9 Type 2 diabetes mellitus without complications; I10 Essential (primary) hypertension
CPT/HCPCS: 19301; 19281; 76098; 88307; J0690; J2405; J2704; J3010

== ENCOUNTER → 2019-03-02 07:08 | Outpatient (CLI) | payer MEDICARE, BC, SELFPAY ==
--- NOTE | 2019-03-02 | DI.MG.S_ITS ---
SPECIMEN: 03/02/2019 CLINICAL: Right breast lumpectomy specimen. Correlation is made to exams dated: 03/02/2019 localization, 11/05/2018 mammogram, 10/27/2018 mammogram, 02/05/2019 specimen, 02/05/2019 localization - [facility], and 11/12/2018 stereotactic biopsy - [facility]. Right breast surgical specimen contains the two localizing wires with the targeted ribbon-shaped biopsy clip interposed between them. IMPRESSION: SPECIMEN Right breast surgical specimen contains the two localizing wires with the targeted ribbon-shaped biopsy clip interposed between them. Findings discussed with the referring provider Dr. Néstor Caballero in the [facility] operating room by telephone by Dr. Marroquin at approximately 11:10 am on 03/02/2019. This exam was interpreted at Station ID: [id number]. Shady Marroquin M.D. ecl/:03/02/2019 11:13:56
--- NOTE | 2019-03-02 | DI.MG.S_ITS ---
PROCEDURE: MM NEEDLE LOC RT 2D [facility], [facility]/05/2019, 11:46. [facility], , MM NEEDLE LOC RT 2D, 02/05/2019, 8:21. [facility], , MG STEREOTACTIC BREAST BIOPSY RIGHT, 11/12/2018, 10:41. [facility], , BREAST SPECIMEN RIGHT, 11/12/2018, 9:03. INDICATIONS: Right Breast Cancer FINDINGS: IMPRESSION: Dictated by: Shady Marroquin M.D. on 03/02/2019 at 8:35 Approved by: Shady Marroquin M.D. on 03/02/2019 at 8:36
== END ==
PROVIDERS: PCP Internal Medicine; Visit Provider Specialist
DX: D05.11 Intraductal carcinoma in situ of right breast (principal)
CPT/HCPCS: 19281; 76098

== ENCOUNTER → 2019-03-25 16:01 | Outpatient (CLI) | payer MEDICARE, BC, SELFPAY ==
[2019-03-25 17:21] LABS: Aspartate Aminotransferase 27 IU/L (14-36); BUN Creatinine Ratio 31.7 (6-22); Blood Urea Nitrogen 19 mg/dL (7-17); Calcium 9.6 mg/dL (8.4-10.2); Carbon Dioxide 26 mmol/L (22-32); Chloride 105 mmol/L (98-107); Cholesterol 138 mg/dL (140-199); Estimated Glomerular Filt Rate > 60.0 mL/min (>60); Glucose 77 mg/dL (80-110); HDL Cholesterol 64 mg/dL (40-60); HEMOLYSIS 29 (0-50); LDL Cholesterol Calculated 44 mg/dL (<100); Potassium 4.4 mmol/L (3.4-5.1); Sodium 140 mmol/L (137-145); Triglycerides 152 mg/dL (35-150)
== END ==
PROVIDERS: PCP Internal Medicine; Visit Provider Internal Medicine
DX: I10 Essential (primary) hypertension (principal); E78.2 Mixed hyperlipidemia
CPT/HCPCS: 36415; 80048; 80061; 84450

== ENCOUNTER → 2019-04-16 14:29 | Outpatient (CLI) | payer MEDICARE, BC, SELFPAY ==
--- NOTE | 2019-04-16 | DI.RAD.S_ITS ---
PROCEDURE: XR ABDOMEN MIN 2V INDICATIONS: HISTORY OF OTHER VENOUS THROMBOSIS AND EMBOLISM TECHNIQUE: 2 views of the abdomen were acquired. COMPARISON: [facility], CR, XR CHEST 2V, 04/16/2019, 14:41. FINDINGS: Surgical changes and devices: An IVC filter is seen. Bowel: No pneumoperitoneum. The bowel gas pattern is normal. Soft tissues: No masses; visualized solid organ contours appear normal in size. No suspicious abdominal calcifications. Bones: No suspicious bony abnormalities. IMPRESSION: Nonobstructive bowel gas pattern. IVC filter noted. Dictated by: Anselmo Ryan M.D. on 04/16/2019 at 15:47 Approved by: Anselmo Ryan M.D. on 04/16/2019 at 15:48
--- NOTE | 2019-04-16 | DI.RAD.S_ITS ---
PROCEDURE: XR CHEST 2V INDICATIONS: HISTORY OF OTHER VENOUS THROMBOSIS AND EMBOLISM TECHNIQUE: 2 views of the chest were acquired. COMPARISON: [facility], , CHEST 2 VIEW, 08/13/2013, 16:30. FINDINGS: Surgical changes and devices: None. Lungs and pleura: Lungs are clear. No pleural effusions or pneumothorax. Mediastinum: Mediastinal contours are normal. Heart size is normal. Bones and chest wall: No suspicious bony abnormalities. Soft tissues appear unremarkable. IMPRESSION: No acute pulmonary process. Dictated by: Maria Del Carmen Calixto M.D. on 04/16/2019 at 17:24 Approved by: Maria Del Carmen Calixto M.D. on 04/16/2019 at 17:26
== END ==
PROVIDERS: PCP Internal Medicine; Visit Provider Internal Medicine
DX: Z86.718 Personal history of other venous thrombosis and embolism (principal)
CPT/HCPCS: 71046; 74019

== ENCOUNTER → 2019-07-06 12:23 | Outpatient (CLI) | payer MEDICARE, BC, SELFPAY ==
[2019-07-06 12:40] LABS: Add Manual Diff / Slide Review NO; Basophils Absolute Auto 0 /uL (0-100); Basophils Percent Auto 0.5 % (0-2); Eosinophils Absolute Auto 200 /uL (0-450); Eosinophils Percent Auto 3.7 % (2-4); Hematocrit 45.7 % (36-46); Hemoglobin 15.8 g/dL (12.0-16.0); Lymphocytes Absolute Auto 600 /uL (1100-4500); Lymphocytes Percent Auto 13.4 % (25-40); Mean Corpuscular HGB Conc 34.5 % (30-36); Mean Corpuscular Hemoglobin 29.6 PG (26-34); Mean Corpuscular Volume 85.7 fL (80-100); Monocytes Absolute Auto 500 /uL (0-900); Monocytes Percent Auto 10.9 % (3-14); Neutrophils Absolute Auto 3300 /uL (1500-7000); Neutrophils Percent Auto 71.5 % (50-75); Platelet Count 133 X10^3/uL (150-400); Red Blood Cell Count 5.33 X10^6/uL (4.0-5.2); Red Cell Distribution Width 14.4 % (11.6-14.8); White Blood Cell Count 4.6 X10^3/uL (4.5-11.0)
[2019-07-06 12:58] LABS: Alanine Aminotransferase 20 IU/L (<35); Albumin 4.2 g/dL (3.5-5.0); Albumin Globulin Ratio 1.7 (1.0-2.8); Alkaline Phosphatase 69 U/L (38-126); Aspartate Aminotransferase 28 IU/L (14-36); BUN Creatinine Ratio 22.5 (6-22); Bilirubin Total 0.6 mg/dL (0.2-1.3); Blood Urea Nitrogen 18 mg/dL (7-17); Calcium 9.3 mg/dL (8.4-10.2); Carbon Dioxide 26 mmol/L (22-32); Chloride 106 mmol/L (98-107); Estimated Glomerular Filt Rate > 60.0 mL/min (>60); Globulin 2.5 g/dL (1.7-4.1); Glucose 126 mg/dL (80-110); HEMOLYSIS < 15 (0-50); Potassium 4.4 mmol/L (3.4-5.1); Sodium 139 mmol/L (137-145); Total Protein 6.7 g/dL (6.3-8.2)
== END ==
PROVIDERS: PCP Internal Medicine; Visit Provider Internal Medicine Hematology & Oncology
DX: D05.11 Intraductal carcinoma in situ of right breast (principal)
CPT/HCPCS: 36415; 80053; 85025

== ENCOUNTER → 2019-07-14 14:06 | Outpatient (CLI) | payer MEDICARE, BC, SELFPAY | PROVIDERS: PCP Internal Medicine; Visit Provider Internal Medicine Hematology & Oncology | DX: M85.851 Other specified disorders of bone density and structure, right thigh (principal); Z78.0 Asymptomatic menopausal state; E11.9 Type 2 diabetes mellitus without complications; Z85.3 Personal history of malignant neoplasm of breast; Z82.62 Family history of osteoporosis; Z87.891 Personal history of nicotine dependence | CPT/HCPCS: 77080 ==

== ENCOUNTER → 2019-08-28 13:44 | Outpatient (CLI) | payer MEDICARE, BC, SELFPAY ==
[2019-08-28 15:28] LABS: INR 2.1 (0.9-1.3); Prothrombin Time 25.1 SECONDS (10.1-12.7)
== END ==
PROVIDERS: PCP Internal Medicine; Visit Provider Internal Medicine
DX: Z79.01 Long term (current) use of anticoagulants (principal)
CPT/HCPCS: 36415; 85610

== ENCOUNTER → 2019-09-28 10:42 | Outpatient (CLI) | payer MEDICARE, BC, SELFPAY ==
[2019-09-28 11:39] LABS: Add Manual Diff / Slide Review NO; Basophils Absolute Auto 0 /uL (0-100); Basophils Percent Auto 0.5 % (0-2); Eosinophils Absolute Auto 100 /uL (0-450); Eosinophils Percent Auto 3.9 % (2-4); Hematocrit 46.7 % (36-46); Hemoglobin 16.1 g/dL (12.0-16.0); Lymphocytes Absolute Auto 600 /uL (1100-4500); Lymphocytes Percent Auto 16.8 % (25-40); Mean Corpuscular HGB Conc 34.6 % (30-36); Mean Corpuscular Hemoglobin 29.7 PG (26-34); Mean Corpuscular Volume 85.8 fL (80-100); Monocytes Absolute Auto 400 /uL (0-900); Monocytes Percent Auto 10.8 % (3-14); Neutrophils Absolute Auto 2600 /uL (1500-7000); Platelet Count 138 X10^3/uL (150-400); Red Blood Cell Count 5.44 X10^6/uL (4.0-5.2); Red Cell Distribution Width 14.2 % (11.6-14.8); White Blood Cell Count 3.8 X10^3/uL (4.5-11.0)
[2019-09-28 11:43] LABS: Alanine Aminotransferase 21 IU/L (<35); Albumin 4.3 g/dL (3.5-5.0); Albumin Globulin Ratio 1.5 (1.0-2.8); Alkaline Phosphatase 71 U/L (38-126); Aspartate Aminotransferase 30 IU/L (14-36); BUN Creatinine Ratio 22.5 (6-22); Bilirubin Total 0.8 mg/dL (0.2-1.3); Blood Urea Nitrogen 18 mg/dL (7-17); Calcium 9.5 mg/dL (8.4-10.2); Carbon Dioxide 26 mmol/L (22-32); Chloride 107 mmol/L (98-107); Cholesterol 137 mg/dL (140-199); Estimated Glomerular Filt Rate > 60.0 mL/min (>60); Globulin 2.8 g/dL (1.7-4.1); Glucose 97 mg/dL (80-110); HDL Cholesterol 49 mg/dL (40-60); HEMOLYSIS < 15 (0-50); LDL Cholesterol Calculated 60 mg/dL (<100); Potassium 3.9 mmol/L (3.4-5.1); Sodium 141 mmol/L (137-145); Total Protein 7.1 g/dL (6.3-8.2); Triglycerides 142 mg/dL (35-150)
[2019-09-28 11:48] LABS: Hemoglobin A1C% w Est Avg Glu 5.4 % (4.0-6.0)
== END ==
PROVIDERS: Internal Medicine Hematology & Oncology; PCP Internal Medicine; Referring Provider Internal Medicine; Visit Provider Internal Medicine
DX: E11.9 Type 2 diabetes mellitus without complications (principal); I10 Essential (primary) hypertension; E78.2 Mixed hyperlipidemia; D05.11 Intraductal carcinoma in situ of right breast
CPT/HCPCS: 36415; 80053; 80061; 83036; 85025

== ENCOUNTER → 2020-02-02 11:12 | Outpatient (CLI) | payer MEDICARE, BC, SELFPAY ==
--- NOTE | 2020-02-02 | DI.MG.S_ITS ---
BILATERAL DIGITAL SCREENING MAMMOGRAM 3D/2D WITH CAD POST LUMPECTOMY: 02/02/2020 CLINICAL: Routine screening. Personal history of bilateral breast cancer. Family history of breast cancer. Comparison is made to exams dated: 03/02/2019 localization, 02/05/2019 localization, 01/08/2019 breast MRI, 10/27/2018 mammogram, and 10/24/2017 mammogram - [facility]. The tissue of both breasts is heterogeneously dense. This may lower the sensitivity of mammography. Current study was also evaluated with a Computer Aided Detection (CAD) system. There are benign calcifications in the left breast. There also are benign post operative findings in both breasts. No significant masses, calcifications, or other findings are seen in either breast. There has been no significant interval change. IMPRESSION: There is no mammographic evidence of malignancy. A 1 year screening mammogram is recommended. This exam was interpreted at Station ID: [id number]. NOTE: For mammograms, a report in lay terms will be sent to the patient. Approximately 15% of breast malignancies will not be visualized mammographically. In the management of a palpable breast mass, a negative mammogram must not discourage biopsy of a clinically suspicious lesion. Electronically Signed By: Fidelina garcia/yajaira:02/02/2020 13:31:57 copy to: [facility] copy to: RANDOLPH VELAZQUEZ letter sent: Normal Exam ACR BI-RADS Category 2: Benign Finding(s) 3342F
== END ==
PROVIDERS: PCP Internal Medicine; Referring Provider Internal Medicine; Visit Provider Internal Medicine
DX: Z12.31 Encounter for screening mammogram for malignant neoplasm of breast (principal); Z85.3 Personal history of malignant neoplasm of breast; Z80.3 Family history of malignant neoplasm of breast
CPT/HCPCS: 77063; 77067

== ENCOUNTER → 2021-02-02 10:39 | Outpatient (CLI) | payer MEDICARE, BC, SELFPAY ==
--- NOTE | 2021-02-02 10:40 | DI.MG.S_ITS ---
BILATERAL DIGITAL SCREENING MAMMOGRAM 3D/2D WITH CAD POST LUMPECTOMY: 02/02/2021 CLINICAL: Routine screening. Personal history of bilateral breast cancer. Family history of breast cancer. Comparison is made to exams dated: 02/02/2020 mammogram, 01/08/2019 breast MRI, and 10/27/2018 mammogram - [facility]. The tissue of both breasts is heterogeneously dense. This may lower the sensitivity of mammography. Current study was also evaluated with a Computer Aided Detection (CAD) system. There are benign calcifications in both breasts. There also are benign post operative findings in both breasts. No significant masses, calcifications, or other findings are seen in either breast. There has been no significant interval change. IMPRESSION: BENIGN There is no mammographic evidence of malignancy. A 1 year screening mammogram is recommended. This exam was interpreted at Station ID: [id number]. NOTE: For mammograms, a report in lay terms will be sent to the patient. Approximately 15% of breast malignancies will not be visualized mammographically. In the management of a palpable breast mass, a negative mammogram must not discourage biopsy of a clinically suspicious lesion. Electronically Signed By: Gurpreet Cornelius acr/penrad:02/02/2021 11:51:53 copy to: [facility] copy to: RANDOLPH VELAZQUEZ letter sent: Normal Exam ACR BI-RADS Category 2: Benign Finding(s) 3342F
== END ==
PROVIDERS: PCP Internal Medicine; Referring Provider Internal Medicine Hematology & Oncology; Visit Provider Internal Medicine Hematology & Oncology
DX: Z12.31 Encounter for screening mammogram for malignant neoplasm of breast (principal); C50.912 Malignant neoplasm of unspecified site of left female breast; D05.11 Intraductal carcinoma in situ of right breast; Z86.718 Personal history of other venous thrombosis and embolism; Z80.3 Family history of malignant neoplasm of breast
CPT/HCPCS: 77063; 77067

== ENCOUNTER → 2022-02-06 12:46 | Outpatient (CLI) | payer MEDICARE, BC, SELFPAY | PROVIDERS: PCP Internal Medicine; Referring Provider Internal Medicine Hematology & Oncology; Visit Provider Internal Medicine Hematology & Oncology | DX: D05.11 Intraductal carcinoma in situ of right breast (principal); Z53.8 Procedure and treatment not carried out for other reasons ==

== ENCOUNTER → 2022-02-09 09:36 | Outpatient (CLI) | payer MEDICARE, BC, SELFPAY ==
--- NOTE | 2022-02-09 09:37 | DI.MG.S_ITS ---
BILATERAL DIGITAL DIAGNOSTIC MAMMOGRAM 3D/2D: 02/09/2022 CLINICAL: Bilateral Rash, Dimpling Left breast. Comparison is made to exams dated: 02/02/2021 mammogram, 02/02/2020 mammogram, 01/23/2019 ultrasound, 01/08/2019 breast MRI, and 10/27/2018 mammogram - [facility]. The tissue of both breasts is heterogeneously dense. This may lower the sensitivity of mammography. There are benign calcifications in both breasts. There also are benign post operative findings in both breasts. No significant masses, calcifications, or other findings are seen in either breast. There has been no significant interval change. IMPRESSION: BENIGN There is no mammographic evidence of malignancy. A 1 year screening mammogram is recommended. This exam was interpreted at Station ID: [id number]. NOTE: For mammograms, a report in lay terms will be sent to the patient. Approximately 15% of breast malignancies will not be visualized mammographically. In the management of a palpable breast mass, a negative mammogram must not discourage biopsy of a clinically suspicious lesion. Electronically Signed By: Micha Bower M.D., jr/yajaira:02/09/2022 10:19:57 copy to: RANDOLPH VELAZQUEZ letter sent: Normal Exam ACR BI-RADS Category 2: Benign Finding(s) 3342F
== END ==
PROVIDERS: PCP Internal Medicine; Referring Provider Internal Medicine Hematology & Oncology; Visit Provider Internal Medicine Hematology & Oncology
DX: R92.8 Other abnormal and inconclusive findings on diagnostic imaging of breast (principal); R21 Rash and other nonspecific skin eruption
CPT/HCPCS: 77066; G0279

== ENCOUNTER → 2022-08-06 12:35 | Outpatient (CLI) | payer MEDICARE, BC, SELFPAY | PROVIDERS: PCP Internal Medicine; Referring Provider Internal Medicine Hematology & Oncology; Visit Provider Internal Medicine Hematology & Oncology | DX: Z13.820 Encounter for screening for osteoporosis (principal); C50.912 Malignant neoplasm of unspecified site of left female breast; M85.852 Other specified disorders of bone density and structure, left thigh; Z78.0 Asymptomatic menopausal state; Z92.23 Personal history of estrogen therapy | CPT/HCPCS: 77080 ==

== ENCOUNTER → 2022-08-28 13:52 | Outpatient (CLI) | payer MEDICARE, BC, SELFPAY ==
[2022-08-28 14:28] LABS: INR 2.5 (0.9-1.3); Prothrombin Time 28.9 SECONDS (10.1-12.7)
[2022-08-28 14:33] LABS: Cholesterol 171 mg/dL (140-199); HDL Cholesterol 66 mg/dL (40-60); LDL Cholesterol Calculated 61 mg/dL (<100); Triglycerides 219 mg/dL (35-150)
[2022-08-28 14:35] LABS: Hemoglobin A1C% w Est Avg Glu 6.5 % (4.0-6.0)
== END ==
PROVIDERS: PCP Internal Medicine; Referring Provider Internal Medicine; Visit Provider Internal Medicine
DX: Z86.718 Personal history of other venous thrombosis and embolism (principal); E11.42 Type 2 diabetes mellitus with diabetic polyneuropathy; E78.2 Mixed hyperlipidemia; I10 Essential (primary) hypertension; Z95.828 Presence of other vascular implants and grafts
CPT/HCPCS: 36415; 80061; 83036; 84443; 85610

== ENCOUNTER → 2022-12-26 12:45 | Outpatient (CLI) | payer MEDICARE, BC, SELFPAY ==
--- NOTE | 2022-12-26 12:46 | DI.RAD.S_ITS ---
PROCEDURE: XR LUMBAR SPINE 2-3V INDICATIONS: back pain TECHNIQUE: 3 views of the lumbar spine were acquired. COMPARISON: [facility], CR, XR DEXA AXIAL SKELETON, 08/06/2022, 13:16. FINDINGS: Bones: 5 [id number] vertebrae are present. Minimal anterolisthesis of L2 on L3 measuring 0.3 cm. Small vertebral body osteophytes. Lower lumbar spine facet joint hypertrophy. No vertebral body compression fractures. No suspicious bony lesions. Soft tissues: Overlying bowel gas pattern is normal. No suspicious soft tissue calcifications. Infrarenal IVC filter. IMPRESSION: No compression fracture. Mild degenerative changes. Dictated by: Jeovany Amaya M.D. on 12/26/2022 at 16:38 Approved by: Jeovany Amaya M.D. on 12/26/2022 at 16:40
== END ==
PROVIDERS: PCP Internal Medicine; Referring Provider Internal Medicine; Visit Provider Internal Medicine
DX: D05.11 Intraductal carcinoma in situ of right breast (principal); S39.012A Strain of muscle, fascia and tendon of lower back, initial encounter; M47.816 Spondylosis without myelopathy or radiculopathy, lumbar region; X58.XXXA Exposure to other specified factors, initial encounter
CPT/HCPCS: 72100

== ENCOUNTER → 2023-02-11 10:46 | Outpatient (CLI) | payer MEDICARE, BC, SELFPAY ==
--- NOTE | 2023-02-11 10:48 | DI.MG.S_ITS ---
BILATERAL DIGITAL SCREENING MAMMOGRAM 3D/2D WITH CAD: 02/11/2023 CLINICAL: Routine screening. Biilateral Breast Cancer. Comparison is made to exams dated: 02/02/2021 mammogram, 02/09/2022 mammogram, and 02/02/2020 mammogram - [facility]. Both breasts are heterogeneously dense, which may obscure small masses (category c / 51-75% glandular tissue). Current study was also evaluated with a Computer Aided Detection (CAD) system. There are benign calcifications in both breasts. There also are benign post operative findings in both breasts. No significant masses, calcifications, or other findings are seen in either breast. There has been no significant interval change. IMPRESSION: BENIGN There is no mammographic evidence of malignancy. A 1 year screening mammogram is recommended. This exam was interpreted at Station ID: [id number]. NOTE: For mammograms, a report in lay terms will be sent to the patient. Approximately 15% of breast malignancies will not be visualized mammographically. In the management of a palpable breast mass, a negative mammogram must not discourage biopsy of a clinically suspicious lesion. Electronically Signed By: Av iqbal/yajaira:02/11/2023 11:38:49 copy to: August Chiu copy to: RANDOLPH VELAZQUEZ letter sent: Normal Exam ACR BI-RADS Category 2: Benign Finding(s) 3342F
== END ==
PROVIDERS: PCP Internal Medicine; Referring Provider Internal Medicine Hematology & Oncology; Visit Provider Internal Medicine Hematology & Oncology
DX: Z12.31 Encounter for screening mammogram for malignant neoplasm of breast (principal); D05.11 Intraductal carcinoma in situ of right breast
CPT/HCPCS: 77063; 77067

== ENCOUNTER → 2023-04-04 14:42 | Outpatient (CLI) | payer MEDICARE, BC, SELFPAY ==
[2023-04-04 15:51] LABS: INR 4.2 (0.9-1.3); Prothrombin Time 48.8 SECONDS (10.1-12.7)
== END ==
PROVIDERS: PCP Internal Medicine; Referring Provider Internal Medicine; Visit Provider Internal Medicine
DX: Z86.718 Personal history of other venous thrombosis and embolism (principal)
CPT/HCPCS: 36415; 85610

== ENCOUNTER → 2023-05-27 15:19 | Outpatient (CLI) | payer MEDICARE, BC, SELFPAY ==
[2023-05-27 18:20] LABS: BUN Creatinine Ratio 31.5 (6-22); Blood Urea Nitrogen 23 mg/dL (7-17); Calcium 9.6 mg/dL (8.4-10.2); Carbon Dioxide 31 mmol/L (22-32); Chloride 100 mmol/L (98-107); Estimated Glomerular Filt Rate > 60 mL/min (>60); Glucose 144 mg/dL (80-110); Potassium 4.5 mmol/L (3.4-5.1); Sodium 135 mmol/L (137-145)
[2023-05-27 18:27] LABS: Hemoglobin A1C% w Est Avg Glu 6.9 % (4.0-6.0)
[2023-05-27 18:31] LABS: HEMOLYSIS 82 (0-50)
== END ==
PROVIDERS: PCP Internal Medicine; Referring Provider Internal Medicine; Visit Provider Internal Medicine
DX: E11.42 Type 2 diabetes mellitus with diabetic polyneuropathy (principal)
CPT/HCPCS: 36415; 80048; 83036

== ENCOUNTER → 2023-08-30 16:15 | Outpatient (CLI) | payer MEDICARE, SELFPAY ==
[2023-08-30 18:07] LABS: Hematocrit 44.5 % (36-46); Mean Corpuscular HGB Conc 33.6 % (30-36); Mean Corpuscular Hemoglobin 28.6 PG (26-34); Platelet Count 158 X10^3/uL (150-400); Red Blood Cell Count 5.24 X10^6/uL (4.0-5.2); Red Cell Distribution Width 14.2 % (11.6-14.8); White Blood Cell Count 5.5 X10^3/uL (4.5-11.0)
[2023-08-30 18:21] LABS: BUN Creatinine Ratio 27.7 (6-22); Blood Urea Nitrogen 18 mg/dL (7-17); Carbon Dioxide 31 mmol/L (22-32); Chloride 102 mmol/L (98-107); Estimated Glomerular Filt Rate > 60 mL/min (>60); Glucose 141 mg/dL (80-110); HEMOLYSIS 48 (0-50); Potassium 4.2 mmol/L (3.4-5.1); Sodium 139 mmol/L (137-145)
== END ==
PROVIDERS: PCP Internal Medicine; Referring Provider Internal Medicine; Visit Provider Internal Medicine
DX: E11.42 Type 2 diabetes mellitus with diabetic polyneuropathy (principal); Z86.718 Personal history of other venous thrombosis and embolism
CPT/HCPCS: 36415; 80048; 83036; 85027

== ENCOUNTER → 2023-12-13 11:33 | Outpatient (CLI) | payer MEDICARE, SELFPAY ==
[2023-12-13 16:22] LABS: Creatinine Urine Random 152.39 mg/dL
[2023-12-13 16:27] LABS: Microalbumin Urine Random 1.2 mg/dL (0-1.6)
[2023-12-13 17:32] LABS: Hemoglobin A1C% w Est Avg Glu 7.3 % (4.0-6.0)
[2023-12-13 17:50] LABS: Blood Urea Nitrogen 16 mg/dL (7-17); Carbon Dioxide 33 mmol/L (22-32); Chloride 104 mmol/L (98-107); Estimated Glomerular Filt Rate > 60 mL/min (>60); Glucose 145 mg/dL (80-110); HEMOLYSIS < 15 (0-50); Potassium 4.3 mmol/L (3.4-5.1); Sodium 140 mmol/L (137-145)
== END ==
PROVIDERS: PCP Internal Medicine; Referring Provider Internal Medicine; Visit Provider Internal Medicine
DX: E11.42 Type 2 diabetes mellitus with diabetic polyneuropathy (principal); I10 Essential (primary) hypertension
CPT/HCPCS: 36415; 80048; 82043; 82570; 83036

== ENCOUNTER → 2024-02-19 12:28 | Outpatient (CLI) | payer MEDICARE, SELFPAY ==
--- NOTE | 2024-02-19 12:29 | DI.MG.S_ITS ---
BILATERAL DIGITAL SCREENING MAMMOGRAM 3D/2D WITH CAD: 02/19/2024 CLINICAL: Routine screening. Personal history of bilateral breast cancer. Comparison is made to exams dated: 02/11/2023 mammogram, 02/09/2022 mammogram, 02/02/2021 mammogram, 02/02/2020 mammogram, and 10/27/2018 mammogram - [facility]. Both breasts are heterogeneously dense, which may obscure small masses (category c / 51-75% glandular tissue). Current study was also evaluated with a Computer Aided Detection (CAD) system. There are benign calcifications in both breasts. There also are benign post operative findings in both breasts. No significant masses, calcifications, or other findings are seen in either breast. There has been no significant interval change. IMPRESSION: BENIGN There is no mammographic evidence of malignancy. A 1 year screening mammogram is recommended. This exam was interpreted at Station ID: [id number]. NOTE: For mammograms, a report in lay terms will be sent to the patient. Approximately 15% of breast malignancies will not be visualized mammographically. In the management of a palpable breast mass, a negative mammogram must not discourage biopsy of a clinically suspicious lesion. Electronically Signed By: Williams lara/yajaira:02/19/2024 13:20:24 copy to: August Chiu copy to: RANDOLPH VELAZQUEZ letter sent: Normal Exam ACR BI-RADS Category 2: Benign Finding(s) 3342F
== END ==
PROVIDERS: PCP Internal Medicine; Referring Provider Internal Medicine; Visit Provider Internal Medicine
DX: Z12.31 Encounter for screening mammogram for malignant neoplasm of breast (principal); Z85.3 Personal history of malignant neoplasm of breast; R92.333 Mammographic heterogeneous density, bilateral breasts
CPT/HCPCS: 77063; 77067

== ENCOUNTER → 2024-05-04 14:42 | Outpatient (CLI) | payer MEDICARE, SELFPAY ==
--- NOTE | 2024-05-04 14:43 | DI.RAD.S_ITS ---
PROCEDURE: XR DEXA AXIAL SKELETON INDICATIONS: BREAST CANCER COMPARISON: [facility], CR, XR DEXA AXIAL SKELETON, 08/06/2022, 13:16. FINDINGS: Lumbar Spine: L1-L4 Bone mineral density 1.005 g/cm2, T score -0.4. Left Hip: Bone mineral density 0.804 g/cm2, T score -0.8. Left Femoral Neck: Bone mineral density 0.647 g/cm2, T score -1.8. Right Hip: Bone mineral density 0.828 g/cm2, T score -0.9. Right Femoral Neck: Bone mineral density 0.613 g/cm2, T score -2.1. Left Forearm: Bone mineral density 0.721 g/cm2, T score 0.4. Fracture Risk Calculation (when applicable): 10-year fracture risk of a major osteoporotic fracture 20 percent and of a hip fracture 4.8 percent. (T score greater or equal to -1.0 to: NORMAL) (T score from -1.1 to -2.4: OSTEOPENIA) (T score less than or equal to -2.5: OSTEOPOROSIS) IMPRESSION: Osteopenia. Follow-up guidelines as follows: Osteoporosis: Consider a repeat DEXA and Vertebral Fracture Assessment (VFA) exam in 2 years or sooner if medically necessary, to reassess this patient's status. Osteopenia: Consider a repeat DEXA in 2-3 years to reassess this patient's status, or if there is a new clinical indication. Normal: Consider a repeat DEXA in 5 years or sooner, or if there is a new clinical indication. All treatment decisions require clinical judgment and consideration of individual patient factors, including patient preferences, comorbidities, previous drug use, risk factors not captured in the FRAX model (e.g., frailty, falls, vitamin D deficiency, increased bone turnover, interval significant decline in bone density ) and possible under- or over-estimation of fracture risk by FRAX. In addition, the NOF Guide recommends that FDA-approved medical therapies be considered in postmenopausal women and men age >= 50 years with a: * Hip or vertebral (clinical or morphometric) fracture * T-score of <=-2.5 at the spine or hip * Ten-year fracture probability by FRAX of >= 3% for hip fracture or >=20% for major osteoporotic fracture. People with diagnosed cases of osteoporosis or at high risk for fracture should have regular bone mineral density tests. For patients eligible for Medicare, routine testing is allowed once every 2 years. The testing frequency can be increased to one year for patients who have rapidly progressing disease, those who are receiving or discontinuing medical therapy to restore bone mass, or have additional risk factors. Dictated by: Jeovany Amaya M.D. on 05/04/2024 at 15:52 Approved by: Jeovany Amaya M.D. on 05/04/2024 at 15:55
== END ==
LOC: RAD 14:43
PROVIDERS: PCP Internal Medicine; Referring Provider Internal Medicine Hematology & Oncology; Visit Provider Internal Medicine Hematology & Oncology
DX: D75.1 Secondary polycythemia (principal); C50.411 Malignant neoplasm of upper-outer quadrant of right female breast; M85.89 Other specified disorders of bone density and structure, multiple sites; Z79.811 Long term (current) use of aromatase inhibitors; Z17.0 Estrogen receptor positive status [ER+]
CPT/HCPCS: 77080

== ENCOUNTER → 2024-06-04 15:20 | Outpatient (CLI) | payer MEDICARE, SELFPAY ==
[2024-06-04 15:56] LABS: Hematocrit 45.3 % (36-46); Hemoglobin 14.9 g/dL (12.0-16.0); Mean Corpuscular HGB Conc 32.9 % (30-36); Mean Corpuscular Hemoglobin 27.7 PG (26-34); Mean Corpuscular Volume 84.1 fL (80-100); Platelet Count 174 X10^3/uL (150-400); Red Blood Cell Count 5.38 X10^6/uL (4.0-5.2); Red Cell Distribution Width 14.5 % (11.6-14.8); White Blood Cell Count 6.3 X10^3/uL (4.5-11.0)
[2024-06-04 16:38] LABS: Hemoglobin A1C% w Est Avg Glu 7.6 % (4.0-6.0)
[2024-06-04 17:20] LABS: Alanine Aminotransferase 21 IU/L (<35); Albumin 3.9 g/dL (3.5-5.0); Albumin Globulin Ratio 1.4 (1.0-2.8); Alkaline Phosphatase 90 U/L (38-126); Aspartate Aminotransferase 25 IU/L (14-36); BUN Creatinine Ratio 21.3 (6-22); Bilirubin Total 0.8 mg/dL (0.2-1.3); Blood Urea Nitrogen 16 mg/dL (7-17); Calcium 9.6 mg/dL (8.4-10.2); Carbon Dioxide 31 mmol/L (22-32); Chloride 104 mmol/L (98-107); Estimated Glomerular Filt Rate > 60 mL/min (>60); Globulin 2.7 g/dL (1.7-4.1); Glucose 158 mg/dL (80-110); HEMOLYSIS < 15 (0-50); Potassium 4.1 mmol/L (3.4-5.1); Sodium 139 mmol/L (137-145); Total Protein 6.6 g/dL (6.3-8.2)
== END ==
PROVIDERS: PCP Internal Medicine; Referring Provider Internal Medicine; Visit Provider Internal Medicine
DX: E11.42 Type 2 diabetes mellitus with diabetic polyneuropathy (principal); I10 Essential (primary) hypertension
CPT/HCPCS: 80053; 83036; 85027

== ENCOUNTER 2024-07-23 18:24 | Observation (INO) | payer MEDICARE, SELFPAY ==
[2024-07-23] VITALS (14 sets, daily range): BP systolic 132–150; BP diastolic 67–80; PULSE 88–105; RESP 18–28; TEMP 37.2; O2SAT 86–96; BMI 37.1
--- NOTE | 2024-07-23 18:44 | EKG_ITS ---
[address] [address] Test Date: 2024-07-23 Pat Name: Laury Bazzi Department: [facility] Room: Gender: Female Procurement Services Manager: jaden : 1945 Requested By: Order Number: [id number] Reading MD: Chester Borden Measurements Intervals [place] Rate: 98 P: 26 OK: 146 QRS: 6 QRSD: 68 T: 51 QT: 338 QTc: 431 Interpretive Statements Normal sinus rhythm Electronically Signed On 07-30-2024 9:02:42 PST by Chester Borden
--- NOTE | 2024-07-23 18:44 | DI.RAD.S_ITS ---
PROCEDURE: XR CHEST 1V INDICATIONS: Shortness of breath TECHNIQUE: One view of the chest was acquired. COMPARISON: [facility], CR, XR CHEST 2V, 04/16/2019, 14:41. FINDINGS: Surgical changes and devices: None. Lungs and pleura: Elevated right hemidiaphragm is likely chronic. Haziness at the left lung base may be secondary to overlying soft tissues versus a small effusion. Right lung is clear. No pneumothorax. Mediastinum: Mediastinal contours appear normal. Heart size is normal. Bones and chest wall: No suspicious bony lesions. Overlying soft tissues appear unremarkable. IMPRESSION: Mild haziness at the left lung base may be secondary to superimposed soft tissues versus a small effusion. Lungs are otherwise clear. Approved by: Williams Chawla M.D. on 07/23/2024 at 19:41
[2024-07-23 19:15] LABS: Add Manual Diff / Slide Review NO; Basophils Absolute Auto 0 /uL (0-100); Basophils Percent Auto 0.5 % (0-2); Eosinophils Absolute Auto 200 /uL (0-450); Eosinophils Percent Auto 3.1 % (2-4); Hematocrit 42.1 % (36-46); Hemoglobin 13.6 g/dL (12.0-16.0); Lymphocytes Absolute Auto 900 /uL (1100-4500); Mean Corpuscular HGB Conc 32.4 % (30-36); Mean Corpuscular Hemoglobin 27.3 PG (26-34); Mean Corpuscular Volume 84.2 fL (80-100); Monocytes Absolute Auto 700 /uL (0-900); Monocytes Percent Auto 10.5 % (3-14); Neutrophils Absolute Auto 4900 /uL (1500-7000); Neutrophils Percent Auto 72.9 % (50-75); Platelet Count 200 X10^3/uL (150-400); White Blood Cell Count 6.7 X10^3/uL (4.5-11.0)
[2024-07-23 19:23] LABS: INR 1.3 (0.9-1.3); Prothrombin Time 15.2 SECONDS (9.4-12.5)
[2024-07-23 19:25] LABS: Lactate (Lactic Acid) 0.9 mmol/L (0.7-2.1)
[2024-07-23 19:26] LABS: Alanine Aminotransferase 25 IU/L (<35); Albumin 3.8 g/dL (3.5-5.0); Albumin Globulin Ratio 1.3 (1.0-2.8); Alkaline Phosphatase 81 U/L (38-126); Aspartate Aminotransferase 32 IU/L (14-36); BUN Creatinine Ratio 15.3 (6-22); Bilirubin Total 0.7 mg/dL (0.2-1.3); Blood Urea Nitrogen 11 mg/dL (7-17); Calcium 8.9 mg/dL (8.4-10.2); Carbon Dioxide 30 mmol/L (22-32); Chloride 105 mmol/L (98-107); Estimated Glomerular Filt Rate > 60 mL/min (>60); Glucose 139 mg/dL (80-110); HEMOLYSIS 16 (0-50); Potassium 4.2 mmol/L (3.4-5.1); Sodium 136 mmol/L (137-145); Total Protein 6.8 g/dL (6.3-8.2)
[2024-07-23 19:38] LABS: Creatine Kinase 121 U/L (30-135); Lipase 81 U/L (23-300); NT-proBNP (BNP-Adult 18+) 158 pg/mL (<450)
[2024-07-23 19:48] LABS: Influenza A - CEPHEID Flu A NEGATIVE (NEGATIVE); Influenza B - CEPHEID Flu B NEGATIVE (NEGATIVE); Respiratory Syncytial Virus Negative (Negative)
[2024-07-23 19:49] LABS: COVID-19 CEPHEID 4-PLEX PCR Negative (Negative)
[2024-07-23 19:51] LABS: Troponin I < 0.012 ng/mL (0.01-0.034)
[2024-07-23 19:56] LABS: Procalcitonin 0.048 ng/mL (<0.5)
--- NOTE | 2024-07-23 19:56 | PC.NURSE ---
patient was given flutter valve and teaching. The first session produced whitish green sputum. O2 sat did not improve. patient o2 sat intermittently in 88% - 94%. Placed on 2L oxy mask 96%
--- NOTE | 2024-07-23 21:00 | ED.GENADULT ---
HPI - General Adult General Chief complaint: Shortness of Breath/Dyspnea Stated complaint: coughing, sob x4 days getting worse Time Seen by Provider: 07/23/24 18:52 Source: patient Mode of arrival: Ambulatory History of Present Illness HPI narrative: 79-year-old female. Has a history asthma. Has also has a history of pulmonary embolism. Is on Eliquis. History of breast cancer and hypertension and hyperlipidemia. Is here for evaluation of 4 days of shortness of breath and a cough. No fevers. No abdominal pain or vomiting. No change in bowel habits. No chest pain. She has been able to cough some sputum up. She has been getting short of breath with ambulating but specifically around the coughing fits. Related Data Home Medications Medication Instructions Recorded Confirmed docusate sodium 100 mg capsule 100 mg PO BEDTIME 01/07/19 07/24/24 loratadine 10 mg capsule 10 mg PO DAILY 01/07/19 07/24/24 calcium carbonate 500 mg-vitamin 2 tab PO QAM 01/23/19 07/24/24 D3 3.125 mcg (125 unit) tablet (Calcium) blood sugar [facility] 08/27/22 06/04/24 Verio test strips) alpha lipoic acid 300 mg-biotin 1 cap PO DAILY Neuropathy in feet 11/23/22 07/24/24 333 mcg capsule Previous Rx's Medication Instructions Recorded anastrozole 1 mg tablet 1 mg PO DAILY #90 tabs 05/15/22 lancets 33 gauge (OneTouch Delica #100 ea 08/16/23 Plus Lancet) apixaban 5 mg tablet (Eliquis) 5 mg PO BID #180 tabs 08/26/23 atorvastatin 20 mg tablet (Lipitor) 20 mg PO BEDTIME #90 tabs 09/10/23 benazepril 5 mg tablet 5 mg PO DAILY #90 tabs 03/23/24 pregabalin 150 mg capsule 150 mg PO TID #270 caps 04/08/24 trazodone 50 mg tablet 50 mg PO BEDTIME #90 tabs 05/04/24 Allergies Allergy/AdvReac Type Severity Reaction Status Date / Time latex Allergy Redness, Verified 06/04/24 14:35 itching Review of Systems Review of Systems ROS Unobtainable: All systems reviewed & are unremarkable except as noted in HPI and below Patient History Medical History History of colonic polyps Osteopenia Chicken pox (~1951) Cataracts, bilateral Obesity (BMI 30.0-34.9) Polyneuropathy, unspecified Mixed hyperlipidemia Essential hypertension Type 2 diabetes mellitus with polyneuropathy (~2010) Neuropathy Headache Hypercholesteremia Hypertension Surgical History Anesthesia Basal cell carcinoma (~2020) S/P lumpectomy, right breast (~01/2019) Hx of right breast biopsy (02/05/19) Hx of removal of cyst Hx of craniotomy (~2016) H/O tubal ligation (~1976) History of appendectomy (~1956) S/P lumpectomy, left breast (~2009) Family History Family/Other Breast cancer Mother Hypertension Diabetes mellitus Cancer Father Heart disease Hypertension Diabetes mellitus Stroke Sister Diabetes mellitus Cancer Hypertension Brother Diabetes mellitus Social History household members: none Smoking Status: Former smoker alcohol intake: never substance use type: does not use Smoking Status: Former smoker Exam Initial Vital Signs Initial Vital Signs: Vital Signs Temperature 99 F 07/23/24 18:40 Pulse Rate 101 H 07/23/24 18:40 Respiratory Rate 24 07/23/24 18:40 Blood Pressure 139/71 07/23/24 18:40 Pulse Oximetry 91 07/23/24 18:40 Oxygen Delivery Method Room Air 07/23/24 18:40 Const General: cooperative, comfortable and No ill appearing HENMN Head: normal to inspection and normocephalic Resp Effort & Inspection: cough, not labored, no retractions and not tachypneic Auscultation: rhonchi and wheezes Cardio Rate: regular rate Rhythm: regular rhythm GI Inspection: normal to inspection Skin General: no rashes or lesions noted Neuro General: patient alert, patient awake, patient oriented x3 and moves all extremities Extrem General: No edema Scores GCS Gavin coma scale eye opening: Spontaneous Gavin coma scale verbal response: Orientated Gavin coma scale motor response: Obey commands Gavin coma scale total score: 15 Course Orders Ordered: ED Orders 07/23/24 18:44 XR chest 1V Stat EKG-12 Lead Stat Measure peak expiratory flow ONCE RT Consult Eval and Treat NOW 07/23/24 18:59 Complete Blood Count AUTO DIFF Stat Comprehensive Metabolic Panel Stat Lactate (Lactic Acid) Stat Lipase Stat NT-proBNP (BNP-Adult 18+) Stat Procalcitonin Stat Prothrombin Time INR Stat Troponin & CK Cardiac Panel Stat 07/23/24 19:05 Covid-19 + FLU A/B + RSV - PCR Stat Respiratory Panel (Film Array) Stat 07/23/24 20:16 Blood Culture Stat 07/23/24 20:35 Sputum Culture Stat 07/23/24 21:01 Troponin & CK Cardiac Panel Stat 07/23/24 21:52 CT angio chest PE protocol Stat Acetaminophen (Acetaminophen 325 Mg Tablet) 650 mg PO Q6H PRN PRN Reason: Fever/Mild Pain (1-3) Al Hydrox/Mg Hydrox/Simethicone (Mag Hydrox/Alum/Simeth 30 Ml Udc) 30 ml PO Q6HR PRN PRN Reason: Dyspepsia Albuterol (Albuterol 2.5 Mg/3 Ml Neb (Adult)) 2.5 mg INH [id number] PRN PRN Reason: Shortness Of Breath Albuterol/Ipratropium (Albuterol/Ipratropium 3 Ml Ampul) 3 ml INH RTTID ALEXEI Methylprednisolone (Methylprednisolone 40 Mg/Ml Vial) 60 mg INJ Q8H ALEXEI Naloxone HCl (Naloxone 0.4 Mg/Ml Vial) 0.2 mg IV Q2MIN PRN PRN Reason: Opiate Reversal Ondansetron HCl (Ondansetron 4 Mg/2 Ml Inj) 4 mg IV Q8HR PRN PRN Reason: Nausea And Vomiting Sennosides (Sennosides 8.6 Mg Tablet) 17.2 mg PO BEDTIME PRN PRN Reason: constipation Discontinued Medications Albuterol (Albuterol 2.5 Mg/3 Ml Neb (Adult)) 2.5 mg INH NOW ONE Stop: 07/23/24 23:22 Last Admin: 07/23/24 23:32 Dose: 2.5 mg Documented By: NILESH Ceftriaxone Sodium 1,000 mg/ (Sodium Chloride) 100 mls @ 200 mls/hr IV NOW ONE Stop: 07/24/24 00:36 Last Infusion: 07/24/24 01:23 Dose: Infused Documented By: Admin: 07/24/24 00:50 Dose: 200 mls/hr Documented By: NICOLE Azithromycin 500 mg/ Dextrose 250 mls @ 250 mls/hr IV NOW ONE Stop: 07/24/24 00:36 Last Admin: 07/24/24 01:50 Dose: 250 mls/hr Documented By: ROBERTH Methylprednisolone (Methylprednisolone 125 Mg/2 Ml Vial) 125 mg IV NOW ONE Stop: 07/24/24 01:09 Last Admin: 07/24/24 01:30 Dose: 125 mg Documented By: NILESH Pantoprazole Sodium (Pantoprazole 40 Mg Vial) 20 mg IV NOW ONE Stop: 07/24/24 02:10 Last Admin: 07/24/24 02:26 Dose: 20 mg Documented By: AM Vital Signs Vital signs: Vital Signs - 8 hr 07/23/24 19:14 07/23/24 19:15 07/23/24 19:15 Pulse Rate 97 H 92 H Respiratory Rate Blood Pressure 132/76 Pulse Oximetry 90 L 91 Oxygen Delivery Method Oxygen Flow Rate 07/23/24 19:22 07/23/24 19:30 07/23/24 19:30 Pulse Rate 94 H 91 H Respiratory Rate Blood Pressure 132/76 137/80 Pulse Oximetry 91 90 L Oxygen Delivery Method Oxygen Flow Rate 07/23/24 20:00 07/23/24 20:00 07/23/24 20:30 Pulse Rate 91 H Respiratory Rate Blood Pressure 150/74 H 146/71 H Pulse Oximetry 96 Oxygen Delivery Method Nasal Cannula Oxygen Flow Rate 2 07/23/24 20:30 07/23/24 21:00 07/23/24 21:30 Pulse Rate 93 H 92 H Respiratory Rate 18 Blood Pressure 140/68 Pulse Oximetry 94 95 Oxygen Delivery Method Oximask Oxygen Flow Rate 2 07/23/24 21:30 07/23/24 22:10 07/23/24 22:34 Pulse Rate 88 91 H 90 Respiratory Rate 21 24 18 Blood Pressure Pulse Oximetry 93 95 86 L Oxygen Delivery Method Oxygen Flow Rate 07/23/24 23:00 07/23/24 23:30 07/23/24 23:52 Pulse Rate 105 H 92 H Respiratory Rate 20 28 H Blood Pressure 149/67 H Pulse Oximetry 93 94 Oxygen Delivery Method Oximask Oximask Oxygen Flow Rate 2 2 07/23/24 23:52 07/24/24 00:00 07/24/24 00:01 Pulse Rate 100 H 110 H Respiratory Rate 24 41 H Blood Pressure 172/72 H Pulse Oximetry 95 Oxygen Delivery Method Oxygen Flow Rate 07/24/24 00:01 07/24/24 00:24 07/24/24 00:24 Pulse Rate 108 H 111 H Respiratory Rate 34 H 18 Blood Pressure 150/69 H Pulse Oximetry 92 Oxygen Delivery Method Oximask Oximask Oxygen Flow Rate 2 07/24/24 00:26 07/24/24 00:30 07/24/24 00:30 Pulse Rate 126 H 107 H Respiratory Rate 26 H 12 Blood Pressure 140/61 Pulse Oximetry 90 L 92 Oxygen Delivery Method Oximask Oxygen Flow Rate 2 07/24/24 00:30 07/24/24 01:00 07/24/24 01:00 Pulse Rate 108 H Respiratory Rate 18 Blood Pressure 137/102 H Pulse Oximetry 88 L 92 Oxygen Delivery Method Room Air Oximask Oxygen Flow Rate 2 Medical Decision Making Medical Records Medical records reviewed: Yes I reviewed the patient's medical records. Lab Data Lab results reviewed: Yes I reviewed the patient's lab results. 07/23/24 18:59 07/23/24 18:59 Labs: Lab Results 07/23/24 07/23/24 07/23/24 Range/Units 18:59 18:59 19:05 WBC 6.7 (4.5-11.0) X10^3/uL RBC 5.00 (4.0-5.2) X10^6/uL Hgb 13.6 (12.0-16.0) g/dL Hct 42.1 (36-46) % MCV 84.2 (80-100) fL MCH 27.3 (26-34) PG MCHC 32.4 (30-36) % RDW 15.0 H (11.6-14.8) % Plt Count 200 (150-400) X10^3/uL Neut % (Auto) 72.9 (50-75) % Lymph % (Auto) 13.0 L (25-40) % Mcmullen % (Auto) 10.5 (3-14) % Eos % (Auto) 3.1 (2-4) % Baso % (Auto) 0.5 (0-2) % Neut # (Auto) 4900 (7502-6884) /uL Lymph # (Auto) 900 L (2137-0606) /uL Mcmullen # (Auto) 700 (0-900) /uL Eos # (Auto) 200 (0-450) /uL Baso # (Auto) 0 (0-100) /uL PT 15.2 H (9.4-12.5) SECONDS INR 1.3 (0.9-1.3) Sodium 136 L (137-145) mmol/L Potassium 4.2 (3.4-5.1) mmol/L Chloride 105 (98-107) mmol/L Carbon Dioxide 30 (22-32) mmol/L BUN 11 (7-17) mg/dL Creatinine 0.72 (0.52-1.04) mg/dL Estimated GFR > 60 (>60) mL/min BUN/Creatinine Ratio 15.3 (6-22) Glucose 139 H (80-110) mg/dL Lactate 0.9 (0.7-2.1) mmol/L Calcium 8.9 (8.4-10.2) mg/dL Total Bilirubin 0.7 (0.2-1.3) mg/dL AST 32 (14-36) IU/L ALT 25 (<35) IU/L Alkaline Phosphatase 81 (38-126) U/L Total Creatine Kinase 121 (30-135) U/L Troponin I Cancelled < 0.012 NT-Pro-B Natriuret Pep 158 (<450) pg/mL Total Protein 6.8 (6.3-8.2) g/dL Albumin 3.8 (3.5-5.0) g/dL Globulin 3.0 (1.7-4.1) g/dL Albumin/Globulin Ratio 1.3 (1.0-2.8) Lipase 81 (23-300) U/L Procalcitonin 0.048 (<0.5) ng/mL Chlamy pneumoniae PCR Not detected (Not Detect) Adenovirus (PCR) Not detected (Not Detect) B. pertussis DNA (PCR) Not detected (Not Detect) B.parapertussis DNA PCR Not detected (Not Detecte) Coronavirus OC43 (PCR) Not detected (Not Detect) Coronavirus HKU1 (PCR) Not detected (Not Detect) Coronavirus 229E (PCR) Not detected (Not Detect) SARS-CoV-2 (PCR) Negative (Negative) Coronavirus NL63 (PCR) (Not Detect) Human Metapneumovir PCR (Not Detect) Influenza A (RT-PCR) (NEGATIVE) Influenza Type A (PCR) (Not Detect) Influenza B (RT-PCR) (NEGATIVE) Influenza Type B (PCR) (Not Detect) M. pneumoniae (PCR) (Not Detect) Parainfluenza 1 (PCR) (Not Detect) Parainfluenza 2 (PCR) (Not Detect) Parainfluenza 3 (PCR) (Not Detect) Parainfluenza 4 (PCR) (Not Detect) RSV (PCR) (Negative) Entero/Rhino (PCR) (Not Detect) 07/23/24 07/23/24 07/23/24 Range/Units 19:05 19:05 21:01 WBC (4.5-11.0) X10^3/uL RBC (4.0-5.2) X10^6/uL Hgb (12.0-16.0) g/dL Hct (36-46) % MCV (80-100) fL MCH (26-34) PG MCHC (30-36) % RDW (11.6-14.8) % Plt Count (150-400) X10^3/uL Neut % (Auto) (50-75) % Lymph % (Auto) (25-40) % Mcmullen % (Auto) (3-14) % Eos % (Auto) (2-4) % Baso % (Auto) (0-2) % Neut # (Auto) (2317-4998) /uL Lymph # (Auto) (0743-7820) /uL Mcmullen # (Auto) (0-900) /uL Eos # (Auto) (0-450) /uL Baso # (Auto) (0-100) /uL PT (9.4-12.5) SECONDS INR (0.9-1.3) Sodium (137-145) mmol/L Potassium (3.4-5.1) mmol/L Chloride (98-107) mmol/L Carbon Dioxide (22-32) mmol/L BUN (7-17) mg/dL Creatinine (0.52-1.04) mg/dL Estimated GFR (>60) mL/min BUN/Creatinine Ratio (6-22) Glucose (80-110) mg/dL Lactate (0.7-2.1) mmol/L Calcium (8.4-10.2) mg/dL Total Bilirubin (0.2-1.3) mg/dL AST (14-36) IU/L ALT (<35) IU/L Alkaline Phosphatase (38-126) U/L Total Creatine Kinase 116 (30-135) U/L Troponin I < 0.012 NT-Pro-B Natriuret Pep (<450) pg/mL Total Protein (6.3-8.2) g/dL Albumin (3.5-5.0) g/dL Globulin (1.7-4.1) g/dL Albumin/Globulin Ratio (1.0-2.8) Lipase (23-300) U/L Procalcitonin (<0.5) ng/mL Chlamy pneumoniae PCR (Not Detect) Adenovirus (PCR) (Not Detect) B. pertussis DNA (PCR) (Not Detect) B.parapertussis DNA PCR (Not Detecte) Coronavirus OC43 (PCR) (Not Detect) Coronavirus HKU1 (PCR) (Not Detect) Coronavirus 229E (PCR) (Not Detect) SARS-CoV-2 (PCR) Not detected (Negative) Coronavirus NL63 (PCR) Not detected (Not Detect) Human Metapneumovir PCR Not detected (Not Detect) Influenza A (RT-PCR) Flu a negative (NEGATIVE) Influenza Type A (PCR) Not detected (Not Detect) Influenza B (RT-PCR) Flu b negative (NEGATIVE) Influenza Type B (PCR) Not detected (Not Detect) M. pneumoniae (PCR) Not detected (Not Detect) Parainfluenza 1 (PCR) Not detected (Not Detect) Parainfluenza 2 (PCR) Not detected (Not Detect) Parainfluenza 3 (PCR) Not detected (Not Detect) Parainfluenza 4 (PCR) Not detected (Not Detect) RSV (PCR) Negative Not detected (Negative) Entero/Rhino (PCR) Not detected (Not Detect) Imaging Data Chest x-ray: Radiologist's Impression: PROCEDURE: XR CHEST 1V INDICATIONS: Shortness of breath TECHNIQUE: One view of the chest was acquired. COMPARISON: [facility], , XR CHEST 2V, 04/16/2019, 14:41. FINDINGS: Surgical changes and devices: None. Lungs and pleura: Elevated right hemidiaphragm is likely chronic. Haziness at the left lung base may be secondary to overlying soft tissues versus a small effusion. Right lung is clear. No pneumothorax. Mediastinum: Mediastinal contours appear normal. Heart size is normal. Bones and chest wall: No suspicious bony lesions. Overlying soft tissues appear unremarkable. IMPRESSION: Mild haziness at the left lung base may be secondary to superimposed soft tissues versus a small effusion. Lungs are otherwise clear. CT scan - chest: Radiologist's Impression: PROCEDURE: CT ANGIO CHEST PE PROTOCOL INDICATIONS: Chest pain, shortness of breath, tachycardia TECHNIQUE: After the administration of intravenous contrast, 2 mm thick sections acquired from the pulmonary apices to the posterior costophrenic angles. 3-dimensional maximum intensity projection (MIP) coronal and sagittal reformats were then acquired through the thorax. For radiation dose reduction, the following was used: automated exposure control, adjustment of mA and/or kV according to patient size. COMPARISON: [facility], CR, XR CHEST 1V, 07/23/2024, 18:48. FINDINGS: Image quality: Diagnostic. Pulmonary arteries: Pulmonary arteries are normal in size, and demonstrate no intraluminal filling defects to suggest central pulmonary embolism. Lower Neck: No enlarged lymph nodes. Thyroid: No thyroid nodules which require sonographic follow up, per consensus guidelines. Axillae: No enlarged lymph nodes. Chest Wall: Unremarkable. Bones: Unremarkable. Lungs and Pleura: No pneumothorax or pleural effusions. No consolidation or suspicious nodules. Heart: Heart size is normal. No pericardial effusion. Thoracic Vessels: No aortic aneurysm. Mediastinum and Lovely: No enlarged lymph nodes. Esophagus: No wall thickening. Mild hiatal hernia. Upper Abdomen: 1.2 cm low-attenuation focus in the posterior right hepatic lobe Hounsfield units 5.2 consistent with simple cyst. Otherwise upper abdomen solid organs and bowel loops appear normal. IMPRESSION: No pulmonary embolus. No acute cardiopulmonary process. ECG Data Attestation: I personally reviewed and interpreted this ECG as follows: Interpretation: Sinus rhythm Ventricular rate 98 Normal QRS Normal QTC No ST T wave changes MDM Narrative Medical decision making narrative: Initial workup did not show a specific source of her shortness of breath or cough. She was not clinically in heart failure. Troponin is negative. Nonischemic EKG. BNP is unremarkable. Chest x-ray shows no signs of pneumonia. She did have some wheezing on exam and was given a nebulizer treatment for this. Initially COVID/flu/RSV were negative. Patient still was hypoxic on room air with an oxygen saturations in the 86-88% range. This improved with nasal cannula. Because of her history of pulmonary embolism CT scan was performed. Showed no focal consolidation and no pulmonary embolism. Even after nebulizer treatment she was still remained hypoxic. A sputum culture was obtained and was sent for culture. Patient has a obvious respiratory source of her presenting symptoms today. Will treat for atypical pneumonia. His antibiotics here in the emergency department. Steroids as well. Discussed the case with Dr. Savage hospitalist on-call who will admit for further evaluation and treatment. Discussed the need for admission with the patient who expressed understanding and agreement as well Discharge Plan Departure Patient Disposition: Home Clinical Impression: Pneumonia, Hypoxia
[2024-07-23 21:24] LABS: Creatine Kinase 116 U/L (30-135)
[2024-07-23 21:37] LABS: Troponin I < 0.012 ng/mL (0.01-0.034)
--- NOTE | 2024-07-23 21:46 | PC.NURSE ---
Trialed off O2. O2 dropped to 88%. Placed back on 2L O2.
--- NOTE | 2024-07-23 21:52 | DI.CT.S_ITS ---
PROCEDURE: CT ANGIO CHEST PE PROTOCOL INDICATIONS: Chest pain, shortness of breath, tachycardia TECHNIQUE: After the administration of intravenous contrast, 2 mm thick sections acquired from the pulmonary apices to the posterior costophrenic angles. 3-dimensional maximum intensity projection (MIP) coronal and sagittal reformats were then acquired through the thorax. For radiation dose reduction, the following was used: automated exposure control, adjustment of mA and/or kV according to patient size. COMPARISON: [facility], CR, XR CHEST 1V, 07/23/2024, 18:48. FINDINGS: Image quality: Diagnostic. Pulmonary arteries: Pulmonary arteries are normal in size, and demonstrate no intraluminal filling defects to suggest central pulmonary embolism. Lower Neck: No enlarged lymph nodes. Thyroid: No thyroid nodules which require sonographic follow up, per consensus guidelines. Axillae: No enlarged lymph nodes. Chest Wall: Unremarkable. Bones: Unremarkable. Lungs and Pleura: No pneumothorax or pleural effusions. No consolidation or suspicious nodules. Heart: Heart size is normal. No pericardial effusion. Thoracic Vessels: No aortic aneurysm. Mediastinum and Lovely: No enlarged lymph nodes. Esophagus: No wall thickening. Mild hiatal hernia. Upper Abdomen: 1.2 cm low-attenuation focus in the posterior right hepatic lobe Hounsfield units 5.2 consistent with simple cyst. Otherwise upper abdomen solid organs and bowel loops appear normal. IMPRESSION: No pulmonary embolus. No acute cardiopulmonary process. Dictated by: Maria Del Carmen Calixto M.D. on 07/23/2024 at 22:40 Approved by: Maria Del Carmen Calixto M.D. on 07/23/2024 at 22:42
[2024-07-23 23:05] LABS: Adenovirus Not Detected (Not Detect); B. parapertussis Not Detected (Not Detecte); Bordetella pertussis Not Detected (Not Detect); Chlamydophila pneumoniae Not Detected (Not Detect); Coronavirus 229E Not Detected (Not Detect); Coronavirus HKU1 Not Detected (Not Detect); Coronavirus NL 63 Not Detected (Not Detect); Coronavirus OC43 Not Detected (Not Detect); Human Metapneumovirus Not Detected (Not Detect); Human Rhinovirus/Enterovirus Not Detected (Not Detect); Influenza A Not Detected (Not Detect); Influenza B Not Detected (Not Detect); Mycoplasma pneumoniae Not Detected (Not Detect); Parainfluenza Virus 1 Not Detected (Not Detect); Parainfluenza Virus 2 Not Detected (Not Detect); Parainfluenza Virus 3 Not Detected (Not Detect); Parainfluenza Virus 4 Not Detected (Not Detect); Respiratory Syncytial Virus Not Detected (Not Detect); SARS- CoV-2 Not Detected (Not Detecte)
[2024-07-23] MEDS: ALBUTEROL 2.5 MG/3 ML NEB (ADULT) INH (23:32)
[2024-07-24] VITALS (15 sets, daily range): BP systolic 106–172; BP diastolic 49–102; PULSE 74–126; RESP 12–41; TEMP 36.2–37; O2SAT 88–97; BMI 38.4
[2024-07-24] MEDS: cefTRIAXone 1,000 MG in SODIUM CHLORIDE 0.9% 100 ML 200 MG IV (00:50)
[2024-07-24] MEDS: methylPREDNISolone 125 MG/2 ML VIAL IV (01:30)
[2024-07-24] MEDS: AZITHROMYCIN 500 MG in DEXTROSE 5% IN WATER 250 ML 250 MG IV ×2 (01:50→20:22)
--- NOTE | 2024-07-24 02:11 | P.HP_ITS ---
History of Present Illness History of Present Illness Date Patient Seen: 07/24/24 Time Patient Seen: 01:00 Chief complaint: coughing, sob x4 days getting worse Narrative: 79 y/o with PMH of breast carcinoma, PE, HTN, HLD, DM, obesity, developed shortness of breath, semi-productive cough and congestion 4 days ago. In the past day or two symptoms became much worse. ED workup with negative viral respiratory panel. CT chest essentially non-revealing. Without leukocytosis, chem panel WNR. She is however wheezy, hypoxemic, even after iv steroid and bronchodilators used in the ED. She arteaga not have a history of either asthma or COPD Placed in observation with acute hypoxemic respiratory failure, upper respiratory infection / atypical PNA. [facility] Medical History (Updated 07/24/24 @ 03:44 by [place] MD) Ductal carcinoma of breast History of colonic polyps Osteopenia Chicken pox (~1951) Cataracts, bilateral Obesity (BMI 30.0-34.9) Polyneuropathy, unspecified Mixed hyperlipidemia Essential hypertension Type 2 diabetes mellitus with polyneuropathy (~2010) Neuropathy Headache Hypercholesteremia Hypertension Surgical History Anesthesia Basal cell carcinoma (~2020) S/P lumpectomy, right breast (~01/2019) Hx of right breast biopsy (02/05/19) Hx of removal of cyst Hx of craniotomy (~2016) H/O tubal ligation (~1976) History of appendectomy (~1956) S/P lumpectomy, left breast (~2009) Family History Family/Other Breast cancer Mother Hypertension Diabetes mellitus Cancer Father Heart disease Hypertension Diabetes mellitus Stroke Sister Diabetes mellitus Cancer Hypertension Brother Diabetes mellitus Social History household members: none Smoking Status: Former smoker alcohol intake: never substance use type: does not use Meds Home Medications and Allergies Home Medications Medication Instructions Recorded Confirmed Type docusate sodium 100 mg capsule 100 mg PO BEDTIME 01/07/19 07/24/24 History loratadine 10 mg capsule 10 mg PO DAILY 01/07/19 07/24/24 History calcium carbonate 500 mg-vitamin 2 tab PO QAM 01/23/19 07/24/24 History D3 3.125 mcg (125 unit) tablet (Calcium) anastrozole 1 mg tablet 1 mg PO DAILY #90 tabs 05/15/22 07/24/24 [facility] 06/04/24 History Verio test strips) alpha lipoic acid 300 mg-biotin 1 cap PO DAILY Neuropathy in feet 11/23/22 07/24/24 History 333 mcg capsule lancets [facility] 08/16/23 06/04/24 Rx Plus Lancet) apixaban 5 mg tablet (Eliquis) 5 mg PO BID #180 tabs 08/26/23 07/24/24 Rx atorvastatin 20 mg tablet (Lipitor) 20 mg PO BEDTIME #90 tabs 09/10/23 07/24/24 Rx benazepril 5 mg tablet 5 mg PO DAILY #90 tabs 03/23/24 07/24/24 Rx pregabalin 150 mg capsule 150 mg PO TID #270 caps 04/08/24 07/24/24 Rx trazodone 50 mg tablet 50 mg PO BEDTIME #90 tabs 05/04/24 07/24/24 Rx Allergies Allergy/AdvReac Type Severity Reaction Status Date / Time latex Allergy Redness, Verified 06/04/24 14:35 itching Review of Systems Cardiovascular Comments: w/o chest pain or palpitations Respiratory Comments: short of breath, cough Gastrointestinal Comments: w/o abdominal pain Genitourinary Comments: w/o voiding difficulties Musculoskeletal Comments: w/o myalgia Exam Vital Signs (past 8 hours): - 07/23/24 18:40 07/23/24 19:14 07/23/24 19:15 Temperature 99 F Pulse Rate 101 H 97 H Respiratory Rate 24 Blood Pressure 139/71 132/76 Pulse Oximetry 91 90 L Oxygen Delivery Method Room Air Oxygen Flow Rate 07/23/24 19:15 07/23/24 19:22 07/23/24 19:30 Temperature Pulse Rate 92 H 94 H Respiratory Rate Blood Pressure 132/76 137/80 Pulse Oximetry 91 91 Oxygen Delivery Method Oxygen Flow Rate 07/23/24 19:30 07/23/24 20:00 07/23/24 20:00 Temperature Pulse Rate 91 H 91 H Respiratory Rate Blood Pressure 150/74 H Pulse Oximetry 90 L 96 Oxygen Delivery Method Nasal Cannula Oxygen Flow Rate 2 07/23/24 20:30 07/23/24 20:30 07/23/24 21:00 Temperature Pulse Rate 93 H 92 H Respiratory Rate 18 Blood Pressure 146/71 H Pulse Oximetry 94 95 Oxygen Delivery Method Oximask Oxygen Flow Rate 2 07/23/24 21:30 07/23/24 21:30 07/23/24 22:10 Temperature Pulse Rate 88 91 H Respiratory Rate 21 24 Blood Pressure 140/68 Pulse Oximetry 93 95 Oxygen Delivery Method Oxygen Flow Rate 07/23/24 22:34 07/23/24 23:00 07/23/24 23:30 Temperature Pulse Rate 90 105 H 92 H Respiratory Rate 18 20 28 H Blood Pressure Pulse Oximetry 86 L 93 94 Oxygen Delivery Method Oximask Oximask Oxygen Flow Rate 2 2 07/23/24 23:52 07/23/24 23:52 07/24/24 00:00 Temperature Pulse Rate 100 H 110 H Respiratory Rate 24 41 H Blood Pressure 149/67 H Pulse Oximetry 95 Oxygen Delivery Method Oxygen Flow Rate 07/24/24 00:01 07/24/24 00:01 07/24/24 00:24 Temperature Pulse Rate 108 H 111 H Respiratory Rate 34 H 18 Blood Pressure 172/72 H Pulse Oximetry 92 Oxygen Delivery Method Oximask Oximask Oxygen Flow Rate 2 07/24/24 00:24 07/24/24 00:26 07/24/24 00:30 Temperature Pulse Rate 126 H 107 H Respiratory Rate 26 H 12 Blood Pressure 150/69 H Pulse Oximetry 90 L 92 Oxygen Delivery Method Oximask Oxygen Flow Rate 2 07/24/24 00:30 07/24/24 00:30 07/24/24 01:00 Temperature Pulse Rate Respiratory Rate Blood Pressure 140/61 137/102 H Pulse Oximetry 88 L Oxygen Delivery Method Room Air Oxygen Flow Rate 07/24/24 01:00 07/24/24 01:30 07/24/24 01:30 Temperature Pulse Rate 108 H 100 H Respiratory Rate 18 21 Blood Pressure 127/58 L Pulse Oximetry 92 92 Oxygen Delivery Method Oximask Oximask Oxygen Flow Rate 2 2 Oxygen Delivery Method Oximask Oxygen Flow Rate 2 Const Other: in no distress HENMT Other: normocephalic, oxygen via NX Neck Other: supple Resp Other: wheezy, rhonchi, tachypnea Cardio Other: tachycardic, regular Skin Other: w/o rashes Extrem Other: w/o swelling Psych Other: lucid, normal mood Objective ECG Impression: NSR 95 without ischemic changes Labs 07/24/24 05:22 07/24/24 05:22 Labs: Laboratory Results - last 24 hr 07/23/24 07/23/24 07/23/24 18:59 18:59 19:05 WBC 6.7 RBC 5.00 Hgb 13.6 Hct 42.1 MCV 84.2 MCH 27.3 MCHC 32.4 RDW 15.0 H Plt Count 200 Neut % (Auto) 72.9 Lymph % (Auto) 13.0 L [place] % (Auto) 10.5 Eos % (Auto) 3.1 Baso % (Auto) 0.5 Neut # (Auto) 4900 Lymph # (Auto) 900 L [place] # (Auto) 700 Eos # (Auto) 200 Baso # (Auto) 0 PT 15.2 H INR 1.3 Sodium 136 L Potassium 4.2 Chloride 105 Carbon Dioxide 30 BUN 11 Creatinine 0.72 Estimated GFR > 60 BUN/Creatinine Ratio 15.3 Glucose 139 H Lactate 0.9 Calcium 8.9 Total Bilirubin 0.7 AST 32 ALT 25 Alkaline Phosphatase 81 Total Creatine Kinase 121 Troponin I Cancelled < 0.012 NT-Pro-B Natriuret Pep 158 Total Protein 6.8 Albumin 3.8 Globulin 3.0 Albumin/Globulin Ratio 1.3 Lipase 81 Procalcitonin 0.048 Chlamy pneumoniae PCR Not detected Adenovirus (PCR) Not detected B. pertussis DNA (PCR) Not detected B.parapertussis DNA PCR Not detected Coronavirus OC43 (PCR) Not detected Coronavirus HKU1 (PCR) Not detected Coronavirus 229E (PCR) Not detected SARS-CoV-2 (PCR) Negative Coronavirus NL63 (PCR) Human Metapneumovir PCR Influenza A (RT-PCR) Influenza Type A (PCR) Influenza B (RT-PCR) Influenza Type B (PCR) M. pneumoniae (PCR) Parainfluenza 1 (PCR) Parainfluenza 2 (PCR) Parainfluenza 3 (PCR) Parainfluenza 4 (PCR) RSV (PCR) Entero/Rhino (PCR) 07/23/24 07/23/24 07/23/24 19:05 19:05 21:01 WBC RBC Hgb Hct MCV MCH MCHC RDW Plt Count Neut % (Auto) Lymph % (Auto) [place] % (Auto) Eos % (Auto) Baso % (Auto) Neut # (Auto) Lymph # (Auto) [place] # (Auto) Eos # (Auto) Baso # (Auto) PT INR Sodium Potassium Chloride Carbon Dioxide BUN Creatinine Estimated GFR BUN/Creatinine Ratio Glucose Lactate Calcium Total Bilirubin AST ALT Alkaline Phosphatase Total Creatine Kinase 116 Troponin I < 0.012 NT-Pro-B Natriuret Pep Total Protein Albumin Globulin Albumin/Globulin Ratio Lipase Procalcitonin Chlamy pneumoniae PCR Adenovirus (PCR) B. pertussis DNA (PCR) B.parapertussis DNA PCR Coronavirus OC43 (PCR) Coronavirus HKU1 (PCR) Coronavirus 229E (PCR) SARS-CoV-2 (PCR) Not detected Coronavirus NL63 (PCR) Not detected Human Metapneumovir PCR Not detected Influenza A (RT-PCR) Flu a negative Influenza Type A (PCR) Not detected Influenza B (RT-PCR) Flu b negative Influenza Type B (PCR) Not detected M. pneumoniae (PCR) Not detected Parainfluenza 1 (PCR) Not detected Parainfluenza 2 (PCR) Not detected Parainfluenza 3 (PCR) Not detected Parainfluenza 4 (PCR) Not detected RSV (PCR) Negative Not detected Entero/Rhino (PCR) Not detected Assessment & Plan Assessment and plan (1) Acute hypoxic respiratory failure: Status: Acute (2) Upper respiratory infection: Status: Acute (3) History of pulmonary embolism: Status: Acute (4) Type 2 diabetes mellitus with polyneuropathy: Status: Acute (5) Essential hypertension: Status: Acute (6) Mixed hyperlipidemia: Status: Acute (7) Obesity (BMI 30.0-34.9): Status: Acute (8) Presence of IVC filter: Status: Chronic (9) History of venous thromboembolism: Status: Chronic (10) Ductal carcinoma in situ (DCIS) of right breast: Problem details: 2010 and 2018 Status: Chronic Assessment & Plan narrative: Acute Hypoxic Respiratory Failure / URI / suspected atypical PNA - given Rocephin and Zithromax in ED, continue zithromax - iv steroid, switch to prednisone with improvement - bronchodilators, Mucinex - prn oxygen HX of leg DVT / PE - anticoagulated, CT w/o PE - Eliquis HLD - statin Hx of breast ductal carcinoma - anastrazole GERD - PPI Insomnia - Trazodone Time-Based Coding :: [TOTAL MINUTES] spent with patient and on the chart (including review of chart, obtaining history, exam, reviewing outside data, placing orders, documenting exam and treatment plan, and counseling patient) on [DATE].
[2024-07-24] MEDS: PANTOPRAZOLE 40 MG VIAL 20 MG IV (02:26)
[2024-07-24 05:31] LABS: Add Manual Diff / Slide Review NO; Basophils Absolute Auto 0 /uL (0-100); Basophils Percent Auto 0.4 % (0-2); Eosinophils Absolute Auto 0 /uL (0-450); Eosinophils Percent Auto 0.3 % (2-4); Hematocrit 41.1 % (36-46); Hemoglobin 13.5 g/dL (12.0-16.0); Lymphocytes Absolute Auto 400 /uL (1100-4500); Lymphocytes Percent Auto 5.6 % (25-40); Mean Corpuscular HGB Conc 32.8 % (30-36); Mean Corpuscular Hemoglobin 27.4 PG (26-34); Mean Corpuscular Volume 83.6 fL (80-100); Monocytes Absolute Auto 300 /uL (0-900); Monocytes Percent Auto 3.4 % (3-14); Neutrophils Absolute Auto 7200 /uL (1500-7000); Neutrophils Percent Auto 90.3 % (50-75); Platelet Count 186 X10^3/uL (150-400); Red Blood Cell Count 4.91 X10^6/uL (4.0-5.2); Red Cell Distribution Width 15.4 % (11.6-14.8); White Blood Cell Count 7.9 X10^3/uL (4.5-11.0)
[2024-07-24 05:42] LABS: BUN Creatinine Ratio 19.2 (6-22); Blood Urea Nitrogen 14 mg/dL (7-17); Calcium 8.9 mg/dL (8.4-10.2); Carbon Dioxide 30 mmol/L (22-32); Chloride 103 mmol/L (98-107); Estimated Glomerular Filt Rate > 60 mL/min (>60); Glucose 214 mg/dL (80-110); HEMOLYSIS 30 (0-50); Potassium 4.3 mmol/L (3.4-5.1); Sodium 135 mmol/L (137-145)
--- NOTE | 2024-07-24 07:33 | P.HP_ITS ---
History of Present Illness History of Present Illness Date Patient Seen: 07/24/24 Time Patient Seen: 09:45 Chief complaint: coughing, sob x4 days getting worse Narrative: 79 y/o with PMH of breast carcinoma, PE, HTN, HLD, DM, obesity, developed shortness of breath, semi-productive cough and congestion 4 days ago. In the past day or two symptoms became much worse. ED workup with negative viral respiratory panel. CT chest essentially non-revealing. Without leukocytosis, chem panel WNR. She is however wheezy, hypoxemic, even after iv steroid and bronchodilators used in the ED. She arteaga not have a history of either asthma or COPD Placed in observation with acute hypoxemic respiratory failure, upper respiratory infection / atypical PNA. Interval history: The patient denies known sick contacts before her illness. She continues to have significant coughing and oxygen desaturations to 88% getting up and walking rims morning. [facility] Medical History Cataracts, bilateral Chicken pox (~1951) Ductal carcinoma of breast Essential hypertension Headache History of colonic polyps Hypercholesteremia Hypertension Mixed hyperlipidemia Neuropathy Obesity (BMI 30.0-34.9) Osteopenia Polyneuropathy, unspecified Type 2 diabetes mellitus with polyneuropathy (~2010) Surgical History Anesthesia Basal cell carcinoma (~2020) H/O tubal ligation (~1976) History of appendectomy (~1956) Hx of craniotomy (~2016) Hx of removal of cyst Hx of right breast biopsy (02/05/19) S/P lumpectomy, left breast (~2009) S/P lumpectomy, right breast (~01/2019) Family History Family/Other Breast cancer Mother Hypertension Diabetes mellitus Cancer Father Heart disease Hypertension Diabetes mellitus Stroke Sister Diabetes mellitus Cancer Hypertension Brother Diabetes mellitus Social History household members: none Smoking Status: Former smoker alcohol intake: never substance use type: does not use Meds Home Medications and Allergies Home Medications Medication Instructions Recorded Confirmed Type docusate sodium 100 mg capsule 100 mg PO BEDTIME 01/07/19 07/24/24 History loratadine 10 mg capsule 10 mg PO DAILY 01/07/19 07/24/24 History calcium carbonate 500 mg-vitamin 2 tab PO QAM 01/23/19 07/24/24 History D3 3.125 mcg (125 unit) tablet (Calcium) anastrozole 1 mg tablet 1 mg PO DAILY #90 tabs 05/15/22 07/24/24 [facility] 06/04/24 History Verio test strips) alpha lipoic acid 300 mg-biotin 1 cap PO DAILY Neuropathy in feet 11/23/22 07/24/24 History 333 mcg capsule lancets 33 [facility] 08/16/23 06/04/24 Rx Plus Lancet) apixaban 5 mg tablet (Eliquis) 5 mg PO BID #180 tabs 08/26/23 07/24/24 Rx atorvastatin 20 mg tablet (Lipitor) 20 mg PO BEDTIME #90 tabs 09/10/23 07/24/24 Rx benazepril 5 mg tablet 5 mg PO DAILY #90 tabs 03/23/24 07/24/24 Rx pregabalin 150 mg capsule 150 mg PO TID #270 caps 04/08/24 07/24/24 Rx trazodone 50 mg tablet 50 mg PO BEDTIME #90 tabs 05/04/24 07/24/24 Rx Allergies Allergy/AdvReac Type Severity Reaction Status Date / Time latex Allergy Redness, Verified 06/04/24 14:35 itching Review of Systems Review of Systems ROS: Yes All systems reviewed with the patient and are negative except as otherwise documented Exam Vital Signs (past 8 hours): - 07/23/24 23:52 07/23/24 23:52 07/24/24 00:00 Temperature Pulse Rate 100 H 110 H Respiratory Rate 24 41 H Blood Pressure 149/67 H Pulse Oximetry 95 Oxygen Delivery Method Oxygen Flow Rate 07/24/24 00:01 07/24/24 00:01 07/24/24 00:24 Temperature Pulse Rate 108 H 111 H Respiratory Rate 34 H 18 Blood Pressure 172/72 H Pulse Oximetry 92 Oxygen Delivery Method Oximask Oximask Oxygen Flow Rate 2 07/24/24 00:24 07/24/24 00:26 12/27/24 00:30 Temperature Pulse Rate 126 H 107 H Respiratory Rate 26 H 12 Blood Pressure 150/69 H Pulse Oximetry 90 L 92 Oxygen Delivery Method Oximask Oxygen Flow Rate 2 07/24/24 00:30 07/24/24 00:30 07/24/24 01:00 Temperature Pulse Rate Respiratory Rate Blood Pressure 140/61 137/102 H Pulse Oximetry 88 L Oxygen Delivery Method Room Air Oxygen Flow Rate 07/24/24 01:00 07/24/24 01:30 07/24/24 01:30 Temperature Pulse Rate 108 H 100 H Respiratory Rate 18 21 Blood Pressure 127/58 L Pulse Oximetry 92 92 Oxygen Delivery Method Oximask Oximask Oxygen Flow Rate 2 2 07/24/24 02:21 07/24/24 06:00 Temperature 98.6 F Pulse Rate 74 Respiratory Rate 18 Blood Pressure 140/86 Pulse Oximetry 94 Oxygen Delivery Method Nasal Cannula Oxygen Flow Rate 2 Oxygen Delivery Method Nasal Cannula Oxygen Flow Rate 2 Narrative Exam Narrative: GENERAL: This is a well-nourished, well-developed patient, in no apparent distress. HEAD: Atraumatic. Normocephalic. No temporal or scalp tenderness. EYES: Pupils equal round and reactive. Extraocular motions intact. No scleral icterus. No injection or drainage. ENT: Mucous membranes pink and moist. NECK: Trachea midline. No JVD, bruits or lymphadenopathy. Supple, nontender, no meningeal signs. CARDIOVASCULAR: Regular rate and rhythm without murmurs, gallops, or rubs. RESPIRATORY: Scattered coarse rhonchi, expiratory wheezing. GASTROINTESTINAL: Abdomen soft, non-tender, nondistended. EXTREMITIES: No clubbing, cyanosis, or edema. BACK: Nontender without deformity or crepitance. No flank tenderness. NEUROLOGIC: Alert, oriented, speech fluent, full upper and lower motor strength, no focal deficits evident. DERMATOLOGIC: No rashes or skin lesions. Objective ECG Impression: Normal sinus rhythm 98bpm, no ischemic changes Imaging Chest x-ray: Radiologist's impression: Mild haziness at the left lung base may be secondary to superimposed soft tissues versus a small effusion. Lungs are otherwise clear. CT scan - chest: Radiologist's impression: No pulmonary embolus. No acute cardiopulmonary process. Upper Abdomen: 1.2 cm low-attenuation focus in the posterior right hepatic lobe Hounsfield units 5.2 consistent with simple cyst. Otherwise upper abdomen solid organs and bowel loops appear normal. Labs 07/24/24 05:22 07/24/24 05:22 Labs: Laboratory Results - last 24 hr 07/23/24 07/23/24 07/23/24 18:59 18:59 19:05 WBC 6.7 RBC 5.00 Hgb 13.6 Hct 42.1 MCV 84.2 MCH 27.3 MCHC 32.4 RDW 15.0 H Plt Count 200 Neut % (Auto) 72.9 Lymph % (Auto) 13.0 L [place] % (Auto) 10.5 Eos % (Auto) 3.1 Baso % (Auto) 0.5 Neut # (Auto) 4900 Lymph # (Auto) 900 L [place] # (Auto) 700 Eos # (Auto) 200 Baso # (Auto) 0 PT 15.2 H INR 1.3 Sodium 136 L Potassium 4.2 Chloride 105 Carbon Dioxide 30 BUN 11 Creatinine 0.72 Estimated GFR > 60 BUN/Creatinine Ratio 15.3 Glucose 139 H Lactate 0.9 Calcium 8.9 Total Bilirubin 0.7 AST 32 ALT 25 Alkaline Phosphatase 81 Total Creatine Kinase 121 Troponin I Cancelled < 0.012 NT-Pro-B Natriuret Pep 158 Total Protein 6.8 Albumin 3.8 Globulin 3.0 Albumin/Globulin Ratio 1.3 Lipase 81 Procalcitonin 0.048 Chlamy pneumoniae PCR Not detected Adenovirus (PCR) Not detected B. pertussis DNA (PCR) Not detected B.parapertussis DNA PCR Not detected Coronavirus OC43 (PCR) Not detected Coronavirus HKU1 (PCR) Not detected Coronavirus 229E (PCR) Not detected SARS-CoV-2 (PCR) Negative Coronavirus NL63 (PCR) Human Metapneumovir PCR Influenza A (RT-PCR) Influenza Type A (PCR) Influenza B (RT-PCR) Influenza Type B (PCR) M. pneumoniae (PCR) Parainfluenza 1 (PCR) Parainfluenza 2 (PCR) Parainfluenza 3 (PCR) Parainfluenza 4 (PCR) RSV (PCR) Entero/Rhino (PCR) 07/23/24 07/23/24 07/23/24 19:05 19:05 21:01 WBC RBC Hgb Hct MCV MCH MCHC RDW Plt Count Neut % (Auto) Lymph % (Auto) [place] % (Auto) Eos % (Auto) Baso % (Auto) Neut # (Auto) Lymph # (Auto) [place] # (Auto) Eos # (Auto) Baso # (Auto) PT INR Sodium Potassium Chloride Carbon Dioxide BUN Creatinine Estimated GFR BUN/Creatinine Ratio Glucose Lactate Calcium Total Bilirubin AST ALT Alkaline Phosphatase Total Creatine Kinase 116 Troponin I < 0.012 NT-Pro-B Natriuret Pep Total Protein Albumin Globulin Albumin/Globulin Ratio Lipase Procalcitonin Chlamy pneumoniae PCR Adenovirus (PCR) B. pertussis DNA (PCR) B.parapertussis DNA PCR Coronavirus OC43 (PCR) Coronavirus HKU1 (PCR) Coronavirus 229E (PCR) SARS-CoV-2 (PCR) Not detected Coronavirus NL63 (PCR) Not detected Human Metapneumovir PCR Not detected Influenza A (RT-PCR) Flu a negative Influenza Type A (PCR) Not detected Influenza B (RT-PCR) Flu b negative Influenza Type B (PCR) Not detected M. pneumoniae (PCR) Not detected Parainfluenza 1 (PCR) Not detected Parainfluenza 2 (PCR) Not detected Parainfluenza 3 (PCR) Not detected Parainfluenza 4 (PCR) Not detected RSV (PCR) Negative Not detected Entero/Rhino (PCR) Not detected 07/24/24 05:22 WBC 7.9 RBC 4.91 Hgb 13.5 Hct 41.1 MCV 83.6 MCH 27.4 MCHC 32.8 RDW 15.4 H Plt Count 186 Neut % (Auto) 90.3 H Lymph % (Auto) 5.6 L [place] % (Auto) 3.4 Eos % (Auto) 0.3 L Baso % (Auto) 0.4 Neut # (Auto) 7200 H Lymph # (Auto) 400 L [place] # (Auto) 300 Eos # (Auto) 0 Baso # (Auto) 0 PT INR Sodium 135 L Potassium 4.3 Chloride 103 Carbon Dioxide 30 BUN 14 Creatinine 0.73 Estimated GFR > 60 BUN/Creatinine Ratio 19.2 Glucose 214 H Lactate Calcium 8.9 Total Bilirubin AST ALT Alkaline Phosphatase Total Creatine Kinase Troponin I NT-Pro-B Natriuret Pep Total Protein Albumin Globulin Albumin/Globulin Ratio Lipase Procalcitonin Chlamy pneumoniae PCR Adenovirus (PCR) B. pertussis DNA (PCR) B.parapertussis DNA PCR Coronavirus OC43 (PCR) Coronavirus HKU1 (PCR) Coronavirus 229E (PCR) SARS-CoV-2 (PCR) Coronavirus NL63 (PCR) Human Metapneumovir PCR Influenza A (RT-PCR) Influenza Type A (PCR) Influenza B (RT-PCR) Influenza Type B (PCR) M. pneumoniae (PCR) Parainfluenza 1 (PCR) Parainfluenza 2 (PCR) Parainfluenza 3 (PCR) Parainfluenza 4 (PCR) RSV (PCR) Entero/Rhino (PCR) Assessment & Plan Assessment & Plan narrative: Acute Hypoxic Respiratory Failure / URI / suspected atypical PNA - Rocephin and Zithromax given in ED, continue azithromycin - iv steroid, switch to prednisone with improvement - bronchodilators, Mucinex - prn oxygen HX of leg DVT / PE - anticoagulated, CT w/o PE - Eliquis HLD - statin Hx of breast ductal carcinoma - anastrazole GERD - PPI Insomnia - Trazodone Diabetes mellitus -diabetic diet, sliding scale insulin Patient is admitted inpatient status as we will require 2 midnights of inpatient level care. Estimated date of discharge 07/26 PROFEE Charge Codes Initial inpatient/observation care: 17177 Lab Results Common Lab Results- Last: 2 White Blood Count 7.9 X10^3/uL (4.5-11.0) 07/24/24 Red Blood Count 4.91 X10^6/uL (4.0-5.2) 07/24/24 Hemoglobin 13.5 g/dL (12.0-16.0) 07/24/24 Hematocrit 41.1 % (36-46) 07/24/24 Mean Corpuscular Volume 83.6 fL (80-100) 07/24/24 Mean Corpuscular Hemoglobin 27.4 PG (26-34) 07/24/24 Mean Corpuscular Hemoglobin Concent 32.8 % (30-36) 06/29 02/18 Red Cell Distribution Width 15.4 % (11.6-14.8) H 07/24/24 Platelet Count 186 X10^3/uL (150-400) 07/24/24 Neutrophils (%) (Auto) 90.3 % (50-75) H 07/24/24 Lymphocytes (%) (Auto) 5.6 % (25-40) L 07/24/24 Monocytes (%) (Auto) 3.4 % (3-14) 07/24/24 Eosinophils (%) (Auto) 0.3 % (2-4) L 07/24/24 Basophils (%) (Auto) 0.4 % (0-2) 07/24/24 Neutrophils # (Auto) 7200 /uL (5638-9016) H 07/24/24 Sodium Level 135 mmol/L (137-145) L 07/24/24 Potassium Level 4.3 mmol/L (3.4-5.1) 07/24/24 Chloride Level 103 mmol/L (98-107) 07/24/24 Carbon Dioxide Level 30 mmol/L (22-32) 07/24/24 Blood Urea Nitrogen 14 mg/dL (7-17) 07/24/24 Creatinine 0.73 mg/dL (0.52-1.04) 07/24/24 Estimat Glomerular Filtration Rate > 60 mL/min (>60) 07/24 BUN/Creatinine Ratio 19.2 (6-22) 07/24/24 Glucose Level 214 mg/dL (80-110) H 07/24/24 Calcium Level 8.9 mg/dL (8.4-10.2) 07/24/24 Total Bilirubin 0.7 mg/dL (0.2-1.3) 07/23/24 Aspartate Amino Transf (AST/SGOT) 32 IU/L (14-36) Alanine Aminotransferase (ALT/SGPT) 25 IU/L (<35) 06/29 01/19 Alkaline Phosphatase 81 U/L (38-126) 07/23/24 Total Protein 6.8 g/dL (6.3-8.2) 07/23/24 Albumin 3.8 g/dL (3.5-5.0) 07/23/24 Globulin 3.0 g/dL (1.7-4.1) 07/23/24 Albumin/Globulin Ratio 1.3 (1.0-2.8) 07/23/24 Triglycerides Level 219 mg/dL (35-150) H 08/28/22 Cholesterol Level 171 mg/dL (140-199) 08/28/22 HDL Cholesterol 66 mg/dL (40-60) H 08/28/22 LDL Cholesterol, Calculated 61 mg/dL (<100) 08/28/22 Thyroid Stimulating Hormone (TSH) 0.70 uIU/mL (0.47-4.68) 0 08/28/22 Alanine Aminotransferase (ALT/SGPT) 25 IU/L (<35) 06/29 01/19 Hemoglobin A1c 7.6 % (4.0-6.0) H 06/04/24 Aspartate Amino Transf (AST/SGOT) 32 IU/L (14-36) Blood Urea Nitrogen 14 mg/dL (7-17) 07/24/24 Creatinine 0.73 mg/dL (0.52-1.04) 07/24/24 Estimat Glomerular Filtration Rate > 60 mL/min (>60) 07/24 BUN/Creatinine Ratio 19.2 (6-22) 07/24/24 Carbamazepine (Tegretol) Level 8.0 mg/L (4.0-12.0) 08/14/16 Cholesterol Level 171 mg/dL (140-199) 08/28/22 Hemoglobin 13.5 g/dL (12.0-16.0) 07/24/24 Red Blood Count 4.91 X10^6/uL (4.0-5.2) 07/24/24 Hematocrit 41.1 % (36-46) 07/24/24 Lipase 81 U/L (23-300) 07/23/24 Urine Random Microalbumin 1.2 mg/dL (0-1.6) 12/13/23 Urine Creatinine 152.39 mg/dL 12/13/23 Urine Microalbumin/Creatinine Ratio 7.0 ug/mg CR (<30) 11/26 02/18 Platelet Count 186 X10^3/uL (150-400) 07/24/24 Prothrombin Time 15.2 SECONDS (9.4-12.5) H 07/23/24 Prothromb Time International Ratio 1.3 (0.9-1.3) 07/23 Rheumatoid Factor <14 IU/mL 09/24/18
[2024-07-24] MEDS: ANASTROZOLE 1 MG TABLET PO (08:42)
[2024-07-24] MEDS: methylPREDNISolone 125 MG/2 ML VIAL 60 MG INJ ×2 (08:42→16:04)
[2024-07-24] MEDS: PREGABALIN 75 MG CAPSULE 150 MG PO ×3 (08:42→20:29)
[2024-07-24] MEDS: lisinopriL 5 MG TABLET PO (08:43)
[2024-07-24] MEDS: guaiFENesin ER 600 MG TAB PO ×2 (08:43→20:28)
[2024-07-24] MEDS: APIXABAN 5 MG TABLET PO ×2 (08:44→20:28)
[2024-07-24] MEDS: ALBUTEROL/IPRATROPIUM 3 ML AMPUL INH ×3 (10:02→21:33)
--- NOTE | 2024-07-24 12:17 | CM.DANOTE ---
DCP Assessment Note: Pt is a 79yo female, resident of [place], is admitted for pneumonia, hypoxia. Pt lives in a condo, alone; has lots of supportive family locally. Pt's Primary Care Provider is Dr. August Chiu and insurance is [employer]. Reviewed chart and team rounds for pt's medical status and initial discharge needs. Per hospitalist, pt will continue O2 therapy and plan for weaning before discharge home on 07/25. DCP met w/patient at bedside; introduced self and role. Patient was found in chair, alert and oriented, cooperative with assessment. Pt confirmed living situation and good support in local family. Pt expressed preference in discharging home when stable and off O2, reports she does not use O2 at baseline. Pt declined any other identified needs for discharge. Plan: Anticipating discharge home 07/25 and when able to wean off O2, pt would like to drive herself home (car on hospital campus). CM team will follow closely for coordination of discharge plans. Susana Zhu [facility] Discharge Planning/Care Management CM Discharge Assessment Start: 07/24/24 12:16 Freq: Status: Active Protocol: Document 07/24/24 12:16 MW (Rec: 07/24/24 12:17 MW [id number]) Discharge Planning Assessment Assigned Barrel Reamer ZAIN Meza DPOA/Assigned Designee Name David Kiran Contact Information [phone] Advance Directives? No History Provided By Patient,Medical Record Has Patient been admitted in last 30 No days? Prior Living Arrangements Apartment/Condo Comment [place] Household Members none Type of transporation used prior to Drives own vehicle admit Independent with ADL's Yes Is patient alert and oriented? Yes Caregiver for Another No Discharge Plan Home Referrals Initiated None needed Whiteboard Updated in Patient Room with Yes name and ext. # of Barrel Reamer Review Status In Process Please Provide Date Initial DC 07/24/24 Assessment Was Performed Next Review Type Continued Stay Review
[2024-07-24] MEDS: TRAZODONE 50 MG TABLET PO (20:28)
[2024-07-24] MEDS: ATORVASTATIN 20 MG TABLET PO (20:28)
[2024-07-24] MEDS: SODIUM CHLORIDE 0.9% FLUSH 10 ML IV (20:28)
[2024-07-25 01:12] VITALS: BP 134/84; PULSE 110; RESP 19; TEMP 37.2; O2SAT 94
[2024-07-25] MEDS: methylPREDNISolone 125 MG/2 ML VIAL 60 MG INJ ×2 (01:12→10:06)
[2024-07-25] MEDS: SODIUM CHLORIDE 0.9% FLUSH 10 ML IV ×2 (01:13→10:06)
[2024-07-25 06:18] VITALS: O2SAT 94
[2024-07-25 08:00] VITALS: BP 110/69; PULSE 101; RESP 18; TEMP 36.6; O2SAT 93
[2024-07-25 09:07] VITALS: PULSE 117; RESP 18; O2SAT 92
[2024-07-25] MEDS: ALBUTEROL/IPRATROPIUM 3 ML AMPUL INH (09:07)
[2024-07-25] MEDS: PREGABALIN 75 MG CAPSULE 150 MG PO (10:04)
[2024-07-25 10:05] VITALS: BP 110/69; PULSE 101
[2024-07-25] MEDS: lisinopriL 5 MG TABLET PO (10:05)
[2024-07-25] MEDS: APIXABAN 5 MG TABLET PO (10:05)
[2024-07-25] MEDS: guaiFENesin ER 600 MG TAB PO (10:05)
[2024-07-25] MEDS: ANASTROZOLE 1 MG TABLET PO (10:05)
--- NOTE | 2024-07-25 10:20 | PM.DS.1 ---
History of Present Illness History of Present Illness Date Patient Seen: 07/25/24 Time Patient Seen: 08:00 Date of Onset of Symptoms: 07/24/24 Chief complaint: coughing, sob x4 days getting worse Narrative: 79 y/o with PMH of breast carcinoma, PE, HTN, HLD, DM, obesity, developed shortness of breath, semi-productive cough and congestion 4 days ago. In the past day or two symptoms became much worse. ED workup with negative viral respiratory panel. CT chest essentially non-revealing. Without leukocytosis, chem panel WNR. She is however wheezy, hypoxemic, even after iv steroid and bronchodilators used in the ED. She arteaga not have a history of either asthma or COPD Placed in observation with acute hypoxemic respiratory failure, upper respiratory infection / atypical PNA. The patient denies known sick contacts before her illness. She continues to have significant coughing and oxygen desaturations to 88% getting up and walking rims morning. Discharge Providers Provider Date of admission: 07/24/24 01:08 Discharge Date: 07/25/24 Primary care physician: August Chiu MD Discharge provider: August Chiu MD Summary Hospital Course Discharge Diagnosis: 1. Atypical pneumonia 2. Acute hypoxemic respiratory failure due to 1. 3. History of left leg deep venous thrombosis/pulmonary embolism 4. Hyperlipidemia 5. History of breast ductal carcinoma 6. GERD 7. Insomnia 8. Diabetes mellitus, type 2 Hospital Course: The patient was admitted and treated with a combination of IV antibiotics, steroids and bronchodilators. She improved significantly overnight and hypoxemia resolved. She was feeling well and interested in discharge home. Her regimen was simplified to oral azithromycin, with steroids and further antibiotics not felt indicated or contraindicated given her diabetes. No other issues arose. Outpatient follow-up was advised. The patient acknowledged understanding, agreement and appreciation of this plan of care, and agreed to call back with any questions or concerns. Status at Discharge Cognitive/behavioral status at discharge: oriented Functional status at discharge: independent ambulation Overall status at discharge: patient is back to baseline Exam Vital Signs (past 8 hours): - 07/25/24 06:18 07/25/24 08:00 07/25/24 09:07 Temperature 97.9 F Pulse Rate 101 H 117 H Respiratory Rate 18 18 Blood Pressure 110/69 Pulse Oximetry 94 93 92 Oxygen Delivery Method Oximask Oxygen Flow Rate 2 2 1 07/25/24 10:05 Temperature Pulse Rate 101 H Respiratory Rate Blood Pressure 110/69 Pulse Oximetry Oxygen Delivery Method Oxygen Flow Rate Fraction of Inspired Oxygen 91 Oxygen Delivery Method Oximask Oxygen Flow Rate 1 Narrative Exam Narrative: GENERAL: This is a well-nourished, well-developed patient, in no apparent distress. EYES: Pupils equal round and reactive. Extraocular motions intact. No scleral icterus. No injection or drainage. ENT: Mucous membranes pink and moist. NECK: Trachea midline. No JVD, bruits or lymphadenopathy. Supple, nontender, no meningeal signs. CARDIOVASCULAR: Regular rate and rhythm without murmurs, gallops, or rubs. RESPIRATORY: Clear to auscultation. GASTROINTESTINAL: Abdomen soft, non-tender, nondistended. EXTREMITIES: No clubbing, cyanosis, or edema. NEUROLOGIC: Alert, oriented, speech fluent, full upper and lower motor strength, no focal deficits evident. DERMATOLOGIC: No rashes or skin lesions. Objective Imaging *: Radiologist's impression: Chest x-ray: Radiologist's impression: Mild haziness at the left lung base may be secondary to superimposed soft tissues versus a small effusion. Lungs are otherwise clear. CT scan - chest: Radiologist's impression: No pulmonary embolus. No acute cardiopulmonary process. Upper Abdomen: 1.2 cm low-attenuation focus in the posterior right hepatic lobe Hounsfield units 5.2 consistent with simple cyst. Otherwise upper abdomen solid organs and bowel loops appear normal. Labs 07/24/24 05:22 07/24/24 05:22 [facility] Medical History Cataracts, bilateral Chicken pox (~1951) Ductal carcinoma of breast Essential hypertension Headache History of colonic polyps Hypercholesteremia Hypertension Mixed hyperlipidemia Neuropathy Obesity (BMI 30.0-34.9) Osteopenia Polyneuropathy, unspecified Type 2 diabetes mellitus with polyneuropathy (~2010) Surgical History Anesthesia Basal cell carcinoma (~2020) H/O tubal ligation (~1976) History of appendectomy (~1956) Hx of craniotomy (~2016) Hx of removal of cyst Hx of right breast biopsy (02/05/19) S/P lumpectomy, left breast (~2009) S/P lumpectomy, right breast (~01/2019) Family History Family/Other Breast cancer Mother Hypertension Diabetes mellitus Cancer Father Heart disease Hypertension Diabetes mellitus Stroke Sister Diabetes mellitus Cancer Hypertension Brother Diabetes mellitus Social History household members: none Smoking Status: Former smoker alcohol intake: never substance use type: does not use Discharge Plan Discharge Plan Patient Disposition: Home Provider Discharge Comment: Followup with Dr. Chiu 1 week Discharge orders & Medications Prescriptions: New azithromycin 250 mg tablet 250 mg PO DAILY Qty: 4 0RF albuterol sulfate 90 mcg/actuation HFA aerosol inhaler 1 inh inhalation QID PRN (Reason: shortness of breath or wheezing) Qty: 8.5 0RF Continued (DME) lancets [OneTouch Delica Plus Lancet] 33 gauge misc See Rx Instructions .ROUTE .MEDSUPPLY Qty: 100 3RF Patient Comments: USE TO CHECK BLOOD SUGAR ONCE DAILY Rx Instructions: As directed atorvastatin [Lipitor] 20 mg tablet 20 mg PO BEDTIME Qty: 90 3RF benazepril 5 mg tablet 5 mg PO DAILY Qty: 90 3RF pregabalin 150 mg capsule 150 mg PO TID Qty: 270 1RF trazodone 50 mg tablet 50 mg PO BEDTIME Qty: 90 3RF (DME) OneTouch Verio test strips Strip See Rx Instructions .ROUTE .MEDSUPPLY Qty: 10 Patient Comments: USE TO CHECK BLOOD SUGAR ONCE DAILY Rx Instructions: As directed Eliquis 5 mg tablet 5 mg PO BID Qty: 180 3RF alpha lipoic acid-biotin 300 mg- 333 mcg capsule 1 cap PO DAILY loratadine 10 mg capsule 10 mg PO DAILY docusate sodium 100 mg capsule 100 mg PO BEDTIME anastrozole 1 mg Tablet 1 mg PO DAILY Qty: 90 3RF calcium carbonate-vitamin D3 [Calcium 500 + D (D3)] 500 mg(1,250mg) -125 unit Tablet 2 tab PO QAM Follow up/Referrals: August Chiu MD [Primary Care Provider] - Visit Report/Discharge Packet Stand Alone Forms: Patient Portal/API, Stroke Signs & Symptoms, Patient Portal/API/Survey Discharge Data Primary Care Provider: August Chiu V Attending Provider: [place] Admit Date/Time: 07/24/24 01:08 Quality MIPS - Admit I confirm the patient?s Advance Care Plan is present, Code status is documented, Surrogate decision maker is in patient?s record [If Yes, STOP here]: Yes MIPS - Meds 'Current medications' to include all prescriptions, [id number] products, herbals, cannabis/cannabidiol products, and vitamin/mineral/dietary (nutritional) supplements. I have utilized all available resources to obtain, update, or review the patient?s current medications. [If Yes, STOP here]: Yes MIPS - DC The patient has a history of heart transplant or Left Ventricular Assist Device (LVAD). If yes, STOP here.: No The patient has current or prior documentation of left ventricular ejection fraction (LVEF) less than or equal to 40%, or moderate or severely depressed left ventricular systolic function.: No A. The patient was prescribed or already taking an Angiotensin-Converting Enzyme (IZABELLA) Inhibitor, or Angiotensin Receptor Joe (ARB).: Yes B. The patient was prescribed or already taking a beta-joe. [If Yes to Both A & B, STOP here]: No Patient not prescribed/taking IZABELLA or ARB, no reason given.: No Patient not prescribed/taking beta-joe, no reason given.: No PROFEE Charge Codes Discharge inpatient/observation: 80404
--- NOTE | 2024-07-25 10:56 | CM.DPC ---
DCP Discharge Home Per MD, pt is medically stable to discharge home today with PO abx and outpt f/u with PCP. No identified barriers to discharge. Pt has her own vehicle in the parking lot and plan is either to drive herself home or have one of her local family members assist with transportation today. SW notified the TCM team requesting outpt f/u with PCP Dr. Chiu in one week. ZAIN Pate
--- NOTE | 2024-07-25 13:48 | PC.NURSE ---
Pt alert and oriented, conversant. neb times one now off O2, sats mid 90's. D/c instructions given Iv d/c'd intact. Pt waiting on ride.
--- NOTE | 2024-08-14 07:35 | PC.NURSE ---
LATE ENTRY Azithromycin infused on 07/24/24 at 0150 completed at 0250.
== END 2024-07-25 13:50 | disposition home or self-care (01) ==
LOC: ED 07-24 01:09 → AC 07-24 01:09
PROVIDERS: Admitting Provider Internal Medicine; Emergency Provider Emergency Medicine; PCP Internal Medicine; Visit Provider Internal Medicine
DX: J96.01 Acute respiratory failure with hypoxia (principal); J06.9 Acute upper respiratory infection, unspecified; E11.42 Type 2 diabetes mellitus with diabetic polyneuropathy; E66.9 Obesity, unspecified; E78.5 Hyperlipidemia, unspecified; I10 Essential (primary) hypertension; Z86.711 Personal history of pulmonary embolism; Z86.718 Personal history of other venous thrombosis and embolism; Z85.3 Personal history of malignant neoplasm of breast; Z11.52 Encounter for screening for COVID-19; K21.9 Gastro-esophageal reflux disease without esophagitis; G47.00 Insomnia, unspecified
CPT/HCPCS: 0241U; 36415; 71045; 71275; 80048; 80053; 82550; 83605; 83690; 83880; 84145; 84484; 85025; 85610; 87040; 87070; 87205; 87633; 93005; 94150; 94640; 94760; 94762; 96365; 96366; 96367; 96375; 99285; G0378; J0696; J2470; J2919; J7613; Q9967

== ENCOUNTER 2024-08-14 09:24 | Day surgery (SDC) | payer MEDICARE, SELFPAY ==
[2024-07-24 01:51] VITALS: BMI 38.4
--- NOTE | 2024-08-14 | PATH_ITS ---
[facility] Accession Number: [id number] No. of containers..01 Tissue . 01 Material submitted: . colon - SIGMOID COLON POLYP . 01 Diagnosis: SIGMOID COLON POLYP: Colonic mucosa with focal mucosal hyperplasia. Negative for dysplasia or malignancy. MRV 08/17/2024 1458 Local . 01 Electronically signed: . Mehul Rodriguez MD, PhD, Pathologist NPI- [id number] . 01 Gross description: . The specimen is received in formalin, labeled with two patient identifiers and sigmoid colon polyp, and consists of a 0.4 x 0.2 x 0.1 cm, steel-brown, irregular soft tissue which is entirely submitted in cassette A1. ([id number]) /FRR 08/15/20241817 Local . 01 Pathologist provided ICD-10: K63.5 . 01 CPT . 045333 Specimen Comment: A courtesy copy of this report has been sent to [facility] Performed at: [address] [address], [place], [place] [id number] MD Adam Morgan MD Phone: [phone]
[2024-08-14 10:26] VITALS: BP 136/82; PULSE 112; RESP 16; TEMP 36.8; O2SAT 94
[2024-08-14] MEDS: SODIUM CHLORIDE 0.9% 1,000 ML 250 ML IV (10:32)
--- NOTE | 2024-08-14 10:55 | P.HP_ITS ---
History of Present Illness History of Present Illness Date Patient Seen: 08/14/24 Time Patient Seen: 10:55 Chief complaint: [facility] Narrative: 79-year-old white female with personal history of polyps 2018, personal history of breast cancer, presents for colon screening. On apixaban, last dose 3 days ago. [facility], [facility] Medical History History of colonic polyps Osteopenia Chicken pox (~1951) Cataracts, bilateral Obesity (BMI 30.0-34.9) Polyneuropathy, unspecified Mixed hyperlipidemia Essential hypertension Type 2 diabetes mellitus with polyneuropathy (~2010) Neuropathy Headache Hypercholesteremia Hypertension Surgical History Anesthesia Basal cell carcinoma (~2020) S/P lumpectomy, right breast (~01/2019) Hx of right breast biopsy (02/05/19) Hx of removal of cyst Hx of craniotomy (~2016) H/O tubal ligation (~1976) History of appendectomy (~1956) S/P lumpectomy, left breast (~2009) Family History Family/Other Breast cancer Mother Hypertension Diabetes mellitus Cancer Father Heart disease Hypertension Diabetes mellitus Stroke Sister Diabetes mellitus Cancer Hypertension Brother Diabetes mellitus Social History household members: none Smoking Status: Former smoker alcohol intake: never substance use type: does not use Meds Home Medications and Allergies Home Medications Medication Instructions Recorded Confirmed Type docusate sodium 100 mg capsule 100 mg PO BEDTIME 01/07/19 08/14/24 History loratadine 10 mg capsule 10 mg PO DAILY 01/07/19 08/14/24 History calcium 500 mg (as 2 tab PO QAM 01/23/19 08/14/24 History carbonate)-vitamin D3 3.125 mcg (125 unit) tablet (Calcium) blood sugar diagnostic (OneTouch #10 ea 08/27/22 07/27/24 History Verio test strips) lancets 33 gauge (OneTouch Delica #100 ea 08/16/23 07/27/24 Rx Plus Lancet) apixaban 5 mg tablet (Eliquis) 5 mg PO BID #180 tabs 08/26/23 08/14/24 Rx atorvastatin 20 mg tablet (Lipitor) 20 mg PO BEDTIME #90 tabs 09/10/23 08/14/24 Rx benazepril 5 mg tablet 5 mg PO DAILY #90 tabs 03/23/24 08/14/24 Rx pregabalin 150 mg capsule 150 mg PO TID #270 caps 04/08/24 08/14/24 Rx trazodone 50 mg tablet 50 mg PO BEDTIME #90 tabs 05/04/24 08/14/24 Rx acetaminophen 500 mg capsule 1,000 mg PO Q6H PRN Pain (Scale 07/27/24 08/14/24 History Score 1-3) alpha lipoic acid 300 mg capsule 300 mg PO DAILY 07/27/24 08/14/24 History semaglutide 0.25 mg or 0.5 mg (2 0.25 mg (0.368 mL) SUBCUT QWEEK #3 08/05/24 08/05/24 Rx mg/3 mL) subcutaneous pen injector mL (Ozempic) semaglutide 0.25 mg or 0.5 mg (2 0.5 mg (0.736 mL) SUBCUT QWEEK #3 08/05/24 08/05/24 Rx mg/3 mL) subcutaneous pen injector mL (Ozempic) Allergies Allergy/AdvReac Type Severity Reaction Status Date / Time latex Allergy Redness, Verified 08/14/24 10:10 itching Review of Systems Review of Systems ROS: Yes All systems reviewed with the patient and are negative except as otherwise documented Exam Vital Signs (past 8 hours): - 08/14/24 10:26 Temperature 98.3 F Pulse Rate 112 H Respiratory Rate 16 Blood Pressure 136/82 Pulse Oximetry 94 Oxygen Delivery Method Room Air Oxygen Delivery Method Room Air Narrative Exam Narrative: Gen: NAD, sitting comfortably in bed, appears well HEENT: Sclera are anicteric, head is normocephalic and atraumatic, trachea is midline. CV: RRR, no JVD Resp: clear to auscultation bilaterally, equal chest wall movement bilaterally Abd: soft, nontender, normoactive bowel sounds Ext: no edema, full range of motion Neuro: Cranial nerves II-XII grossly intact, no focal deficits Skin: No erythema or ecchymosis Assessment & Plan Assessment and plan (1) History of colonic polyps: Status: Acute Assessment & Plan narrative: Patient presents for colonoscopy Risks, benefits, alternatives to colonoscopy explained, including but not limited to bowel perforation or other serious complication requiring surgery at less than 1 in 5000 colonoscopies, abdominal pain, cramping or bleeding and less than 1% of colonoscopies, and the chances that we find a diagnosis that would require further intervention of about 2%. Patient agrees to proceed. Time-Based Coding :: [TOTAL MINUTES] spent with patient and on the chart (including review of chart, obtaining history, exam, reviewing outside data, placing orders, documenting exam and treatment plan, and counseling patient) on [DATE]. PROFEE Filter Press Pumper Document charge(s): No
--- NOTE | 2024-08-14 11:24 | PM.OP.COLON ---
Operative Date/Time/Diagnoses Date of procedure: 08/14/24 Time of procedure: 11:25 Pre-op diagnosis: Personal history of polyps Post-op diagnosis: same Procedure & Clinicians Study performed: Colonoscopy with cold snare polypectomy of sigmoid polyp Same procedure as scheduled: Yes Indications: Personal history of polyps Surgeon: Song Perez Procedure Notes SCOAP/Timeout: Performed Procedure in detail: Time-out was performed. Mac was induced. Patient was placed in left lateral decubitus position. The perineum was inspected without any gross abnormality. Lubricated pediatric colonoscope was inserted and advanced to the cecum. The terminal ileum was intubated. The colonoscope was withdrawn slowly inspecting the circumference of the colon. Small sessile polyp of the sigmoid colon was noted, completely excised with cold snare polypectomy and retrieved. Very small polyps may have been missed, prep quality was adequate. Retroflexed view of the rectum showed large, grade 4 prolapsed nonbleeding internal hemorrhoids. The scope was withdrawn the patient was taken to PACU in good condition. Scope withdrawal time: 9 Sedation minutes: 15 Findings: divertiulosis, internal hemorrhoids and polyp(s) Specimen(s): other (Sigmoid colon polyp) Complications: none Impression: Diverticulosis, grade 4 internal hemorrhoids, sigmoid polyp Post-procedure Recommendations: Colonoscopy in 5 years Follow up: as needed Disposition: PACU
[2024-08-14 11:27] VITALS: BP 101/56; PULSE 104; RESP 18; TEMP 37; O2SAT 94
[2024-08-14 11:31] VITALS: BP 108/69; PULSE 102; RESP 16; O2SAT 92
[2024-08-14 11:36] VITALS: BP 123/72; PULSE 93; RESP 13; O2SAT 96
[2024-08-14 11:40] VITALS: BP 113/62; PULSE 90; RESP 14; TEMP 36.4; O2SAT 94
[2024-08-14 11:42] VITALS: BP 110/77; PULSE 90; RESP 16; TEMP 36.4; O2SAT 95
== END 2024-08-14 12:00 | disposition home or self-care (01) ==
PROVIDERS: PCP Internal Medicine; Referring Provider Surgery; Visit Provider Surgery
PROC: 0DJD8ZZ Inspection of Lower Intestinal Tract, Via Natural or Artificial Opening Endoscopic (ICD-10-PCS; CPT 45378; principal; 2024-08-14 10:45)
DX: Z12.11 Encounter for screening for malignant neoplasm of colon (principal); Z86.0100 Personal history of colon polyps, unspecified; K63.5 Polyp of colon; K64.3 Fourth degree hemorrhoids; K57.30 Diverticulosis of large intestine without perforation or abscess without bleeding; C50.911 Malignant neoplasm of unspecified site of right female breast; I10 Essential (primary) hypertension; E78.2 Mixed hyperlipidemia; E11.9 Type 2 diabetes mellitus without complications; E66.9 Obesity, unspecified; Z68.35 Body mass index [BMI] 35.0-35.9, adult; Z87.891 Personal history of nicotine dependence; Z86.718 Personal history of other venous thrombosis and embolism; Z79.01 Long term (current) use of anticoagulants
CPT/HCPCS: 45385; J2704

== ENCOUNTER → 2024-12-08 12:06 | Outpatient (CLI) | payer MEDICARE, SELFPAY ==
[2024-07-24 01:51] VITALS: BMI 38.4
[2024-12-08 12:59] LABS: Hemoglobin A1C% w Est Avg Glu 6.3 % (4.0-6.0)
[2024-12-08 13:03] LABS: Aspartate Aminotransferase 25 IU/L (14-36); BUN Creatinine Ratio 18.5 (6-22); Blood Urea Nitrogen 17 mg/dL (7-17); Calcium 9.1 mg/dL (8.4-10.2); Carbon Dioxide 27 mmol/L (22-32); Chloride 105 mmol/L (98-107); Cholesterol 122 mg/dL (140-199); Estimated Glomerular Filt Rate > 60 mL/min (>60); Glucose 146 mg/dL (70-99); HDL Cholesterol 62 mg/dL (40-60); HEMOLYSIS < 15 (0-50); LDL Cholesterol Calculated 26 mg/dL (<100); Potassium 4.1 mmol/L (3.4-5.1); Sodium 140 mmol/L (137-145); Triglycerides 172 mg/dL (35-150)
[2024-12-08 16:47] LABS: Creatinine Urine Random 297.91 mg/dL
[2024-12-08 16:52] LABS: Microalbumin Urine Random 3.8 mg/dL (0-1.6)
== END ==
PROVIDERS: PCP Internal Medicine; Referring Provider Internal Medicine; Visit Provider Internal Medicine
DX: E11.42 Type 2 diabetes mellitus with diabetic polyneuropathy (principal); Z86.711 Personal history of pulmonary embolism; E78.2 Mixed hyperlipidemia
CPT/HCPCS: 36415; 80048; 80061; 82043; 82570; 83036; 84450

== ENCOUNTER → 2025-06-21 15:54 | Outpatient (CLI) | payer MEDICARE, SELFPAY ==
[2024-07-24 01:51] VITALS: BMI 38.4
[2025-06-21 16:44] LABS: Hematocrit 40.7 % (36-46); Hemoglobin 13.2 g/dL (12.0-16.0); Mean Corpuscular HGB Conc 32.4 % (30-36); Mean Corpuscular Hemoglobin 24.6 PG (26-34); Mean Corpuscular Volume 75.9 fL (80-100); Platelet Count 180 X10^3/uL (150-400)
[2025-06-21 17:18] LABS: Alanine Aminotransferase 19 IU/L (<35); Albumin 4.1 g/dL (3.5-5.0); Albumin Globulin Ratio 1.6 (1.0-2.8); Alkaline Phosphatase 84 U/L (38-126); Blood Urea Nitrogen 16 mg/dL (7-17); Calcium 9.6 mg/dL (8.4-10.2); Carbon Dioxide 28 mmol/L (22-32); Chloride 105 mmol/L (98-107); Estimated Glomerular Filt Rate 59 mL/min (>60); Globulin 2.5 g/dL (1.7-4.1); Glucose 161 mg/dL (70-99); HEMOLYSIS < 15 (0-50); Potassium 3.9 mmol/L (3.4-5.1); Sodium 141 mmol/L (137-145); Total Protein 6.6 g/dL (6.3-8.2)
[2025-06-21 17:35] LABS: Hemoglobin A1C% w Est Avg Glu 5.7 % (4.0-6.0)
== END ==
PROVIDERS: PCP Internal Medicine; Referring Provider Internal Medicine; Visit Provider Internal Medicine
DX: E11.42 Type 2 diabetes mellitus with diabetic polyneuropathy (principal); I10 Essential (primary) hypertension
CPT/HCPCS: 36415; 80053; 83036; 85027

== ENCOUNTER → 2025-07-08 12:10 | Outpatient (CLI) | payer MEDICARE, SELFPAY ==
[2024-07-24 01:51] VITALS: BMI 38.4
[2025-07-08 13:11] LABS: Add Manual Diff / Slide Review NO; Hematocrit 38.6 % (36-46); Hemoglobin 12.4 g/dL (12.0-16.0); Lymphocytes Absolute Auto 900 /uL (1100-4500); Mean Corpuscular HGB Conc 32.2 % (30-36); Mean Corpuscular Hemoglobin 24.2 PG (26-34); Mean Corpuscular Volume 75.1 fL (80-100); Platelet Count 189 X10^3/uL (150-400)
[2025-07-08 13:26] LABS: Alanine Aminotransferase 19 IU/L (<35); Albumin 4.0 g/dL (3.5-5.0); Albumin Globulin Ratio 1.7 (1.0-2.8); Alkaline Phosphatase 81 U/L (38-126); Blood Urea Nitrogen 14 mg/dL (7-17); Calcium 9.4 mg/dL (8.4-10.2); Carbon Dioxide 25 mmol/L (22-32); Chloride 108 mmol/L (98-107); Estimated Glomerular Filt Rate > 60 mL/min (>60); Globulin 2.4 g/dL (1.7-4.1); Glucose 121 mg/dL (70-99); HEMOLYSIS < 15 (0-50); Iron 42 ug/dL (37-170); Potassium 4.2 mmol/L (3.4-5.1); Sodium 140 mmol/L (137-145); Total Protein 6.4 g/dL (6.3-8.2)
[2025-07-08 13:37] LABS: Percent Iron Saturation 9 % (15-50); Total Iron Binding Capacity 454 ug/dL (265-497); Transferrin 367 mg/dL (206-381)
[2025-07-08 14:02] LABS: Ferritin 7 ng/mL (11-264)
== END ==
PROVIDERS: PCP Internal Medicine; Referring Provider Internal Medicine; Visit Provider Internal Medicine Hematology & Oncology
DX: C50.411 Malignant neoplasm of upper-outer quadrant of right female breast (principal); D05.11 Intraductal carcinoma in situ of right breast; D75.1 Secondary polycythemia; Z17.0 Estrogen receptor positive status [ER+]
CPT/HCPCS: 36415; 80053; 82728; 83540; 83550; 85025